=== PATIENT | female | born 1985 | race Hispanic/Latino ===

== ENCOUNTER 2018-03-26 07:43 | Emergency (ER) | payer OTHER ==
[2018-03-26] MEDS ORDERED: NA CHLORIDE 0.9% 1,000 ML ONE (08:31)
[2018-03-26] MEDS ORDERED: ONDANSETRON 4 MG/2 ML VIAL ONE (08:31)
[2018-03-26] MEDS ORDERED: FAMOTIDINE 20 MG/2 ML VIAL IV ONE (08:32)
[2018-03-26 08:57] LABS: Urine Blood TRACE (NEG); Urine Glucose NEGATIVE (NEG); Urine Protein NEGATIVE (NEG)
[2018-03-26 09:02] LABS: Absolute Lymphocytes (CBC) 0.9 K/uL (0.7-4.9); Absolute Monocytes 0.7 K/uL (0.1-1.3); Basophils % 0.1 % (0-1.3); Eosinophils % 0.2 % (0-4.4); Hematocrit 42.1 % (36.0-45.0); Lymphocytes % 6.6 % (15.3-44.8); MCH 31.5 pg (27.0-35.0); MCV 89.4 fL (80-100); MPV 8.7 fL (7.6-11.3); Monocytes % 4.8 % (3.3-12.3); RBC Red Blood Cell Count 4.72 M/uL (3.86-4.86)
[2018-03-26 09:08] LABS: Urine Bacteria <20 /HPF (<20); Urine Culture Reflex Order REFLEXED; Urine RBC <5 /HPF (NONE SEEN)
[2018-03-26 09:10] LABS: ALT/SGPT 26 U/L (12-78); AST/SGOT 18 U/L (15-37); Albumin 4.1 g/dL (3.4-5.0); Alkaline Phosphatase 83 U/L (45-117); BUN Blood Urea Nitrogen 11 mg/dL (7-18); Bicarbonate 31 mmol/L (21-32); Bilirubin Direct 0.2 mg/dL (0-0.2); Glucose Level 114 mg/dL (74-106); Lipase 126 U/L (73-393); Potassium 3.9 mmol/L (3.5-5.1); Protein, Total 8.1 g/dL (6.4-8.2); Sodium Level 139 mmol/L (136-145)
[2018-03-26] MEDS ORDERED: LIDOCAINE VISCOUS 2% SOLN 15 ML UDC ONE (09:44)
[2018-03-26] MEDS ORDERED: MAGNE/ALUM HYDROXD 30 ML UCUP ONE (09:44)
[2018-03-26 10:38] LABS: Blood Morphology Comment NOT SEEN (NOT SEEN); Platelet Estimate ADEQ
--- NOTE | 2018-03-26 10:42 | EDPHYS ---
Physician Documentation [facility] Name: Chantal Park Age: 32 yrs Sex: Female : 1985 Arrival Date: 03/26/2018 Time: 07:46 Bed 20 Private MD: Deonte Roberts ED Physician Ricco Clarke HPI: 03/26 10:45 This 32 yrs old Female presents to ER via Ambulatory with complaints of kdr Abdominal Pain. 10:45 The patient presents with abdominal pain in the epigastric area. Onset: The kdr symptoms/episode began/occurred yesterday. The symptoms do not radiate. Associated signs and symptoms: Pertinent positives: nausea, vomiting, and diarrhea, Pertinent negatives: blood in stools, chest pain, constipation, hematuria, vomiting blood. The symptoms are described as achy, burning. Modifying factors: The symptoms are alleviated by nothing, the symptoms are aggravated by vomiting. Severity of pain: At its worst the pain was mild moderate in the emergency department the pain. The patient has not experienced similar symptoms in the past. The patient has not recently seen a physician. 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 - Social history:: Smoking status: Patient/guardian denies using tobacco. - Ebola Screening: : No symptoms or risks identified at this time. ROS: 10:45 Constitutional: Negative for fever, chills, and weight loss, Eyes: Negative for injury, kdr pain, redness, and discharge, Neck: Negative for injury, pain, and swelling, Cardiovascular: Negative for chest pain, palpitations, and edema, Respiratory: Negative for shortness of breath, cough, wheezing, and pleuritic chest pain, Back: Negative for injury and pain, : Negative for injury, bleeding, discharge, and swelling, MS/Extremity: Negative for injury and deformity, Skin: Negative for injury, rash, and discoloration, Neuro: Negative for headache, weakness, numbness, tingling, and seizure activity. Psych: Negative for depression, anxiety, suicide ideation, homicidal ideation, and hallucinations, Allergy/Immunology: Negative for hives, rash, and allergies, Endocrine: Negative for neck swelling, polydipsia, polyuria, polyphagia, and marked weight changes, Hematologic/Lymphatic: Negative for swollen nodes, abnormal bleeding, and unusual bruising. 10:45 Abdomen/GI: Positive for nausea, vomiting, and diarrhea, Negative for black/tarry stool, rectal pain, rectal bleeding. Exam: 10:45 Constitutional: This is a well developed, well nourished patient who is awake, alert, kdr and in no acute distress. Head/Face: Normocephalic, atraumatic. Eyes: Pupils equal round and reactive to light, extra-ocular motions intact. Lids and lashes normal. Conjunctiva and sclera are non-icteric and not injected. Cornea within normal limits. Periorbital areas with no swelling, redness, or edema. Neck: Trachea midline, no thyromegaly or masses palpated, and no cervical lymphadenopathy. Supple, full range of motion without nuchal rigidity, or vertebral point tenderness. No Meningismus. Chest/axilla: Normal chest wall appearance and motion. Nontender with no deformity. No lesions are appreciated. Cardiovascular: Regular rate and rhythm with a normal S1 and S2. No gallops, murmurs, or rubs. Normal PMI, no JVD. No pulse deficits. Respiratory: Lungs have equal breath sounds bilaterally, clear to auscultation and percussion. No rales, rhonchi or wheezes noted. No increased work of breathing, no retractions or nasal flaring. Abdomen/GI: Soft, non-tender, with normal bowel sounds. No distension or tympany. No guarding or rebound. No evidence of tenderness throughout. Back: No spinal tenderness. No costovertebral tenderness. Full range of motion. Skin: Warm, dry with normal turgor. Normal color with no rashes, no lesions, and no evidence of cellulitis. MS/ Extremity: Pulses equal, no cyanosis. Neurovascular intact. Full, normal range of motion. Neuro: Awake and alert, GCS 15, oriented to person, place, time, and situation. Cranial nerves II-XII grossly intact. Motor strength 5/5 in all extremities. Sensory grossly intact. Cerebellar exam normal. Normal gait. Psych: Awake, alert, with orientation to person, place and time. Behavior, mood, and affect are within normal limits. Vital Signs: 07:55 BP 119 / 70; Pulse 99; Resp 18; Temp 98.8(O); Pulse Ox 99% on R/A; dh3 07:57 Weight 104.33 kg (R); Height 5 ft. 2 in. (157.48 cm) (R); Pain 9/10; aa5 08:43 BP 118 / 72; Pulse 84; Resp 18; Pulse Ox 98% on R/A; dh3 10:00 BP 116 / 69; Pulse 84; Resp 16; Pulse Ox 99% on R/A; Pain 4/10; em 11:01 BP 121 / 71; Pulse 76; Resp 18; Pulse Ox 98% on R/A; em 07:57 Body Mass Index 42.07 (104.33 kg, 157.48 cm) aa5 MDM: 10:41 Patient medically screened. kdr 10:44 Data reviewed: vital signs, nurses notes. Counseling: I had a detailed discussion with kdr the patient and/or guardian regarding: the historical points, exam findings, and any diagnostic results supporting the discharge/admit diagnosis, lab results, the need for outpatient follow up. ED course: The patient improved with the interventions given. 03/26 08:19 Order name: Basic Metabolic Panel; Complete Time: 09:25 kdr 03/26 08:19 Order name: CBC with Diff [facility] 03/26 08:19 Order name: Creatinine for Radiology; Complete Time: 09:25 [facility] 03/26 08:19 Order name: Hepatic Function; Complete Time: 09:25 [facility] 03/26 08:19 Order name: Lipase; Complete Time: 09:25 kdr 03/26 08:19 Order name: Urine Microscopic Only; Complete Time: 09:25 [facility] 03/26 08:37 Order name: Urine Dipstick--Ancillary (enter results); Complete Time: 09:25 eb 03/26 08:37 Order name: Urine --Ancillary (enter results); Complete Time: 09:25 eb 03/26 09:10 Order name: Urine Culture [facility] 03/26 09:16 Order name: Manual Differential [facility] 03/26 08:19 Order name: IV Saline Lock; Complete Time: 08:43 kdr 03/26 08:19 Order name: Labs collected and sent; Complete Time: 08:37 [facility] 03/26 08:19 Order name: Urine Dipstick-Ancillary (obtain specimen); Complete Time: 08:37 kdr Administered Medications: 08:48 Drug: Zofran 4 mg Route: IVP; Site: left forearm; aa5 09:54 Follow up: Response: No adverse reaction em 08:48 Drug: Pepcid 20 mg Route: IVP; Site: left forearm; aa5 09:54 Follow up: Response: No adverse reaction; Pain is decreased em 08:50 Drug: NS 0.9% 1000 ml Route: IV; Rate: 1 bolus; Site: left forearm; em 09:54 Follow up: IV Status: Completed infusion; IV Intake: 1000ml em 09:54 Drug: GI Cocktail without - (Maalox Suspension 30 ml, Lidocaine Liquid 2 % 15 em ml) Route: PO; 10:58 Follow up: Response: No adverse reaction; Pain is decreased em Disposition: 18 10:41 Discharged to Home. Impression: Abdominal and pelvic pain, Epigastric pain, Gastritis, unspecified. - Condition is Stable. - Discharge Instructions: Gastritis, Adult, [id number], Abdominal Pain, Adult, [id number]. - Prescriptions for Bentyl 20 mg Oral Tablet - take 1 tablet by ORAL route every 6 hours As needed; 10 tablet. Pepcid 20 mg Oral Tablet - take 1 tablet by ORAL route every 12 hours for 5 days; 10 tablet. Tramadol 50 mg Oral Tablet - take 1 tablet by ORAL route every 8 hours as needed; 12 tablet. - Medication Reconciliation Form, Thank You Letter, Work release form form. - Follow up: Deonte Roberts MD; When: 2 - 3 days; Reason: If symptoms return, Further diagnostic work-up, Recheck today's complaints, Continuance of care, Re-evaluation by your physician. - Problem is new. - Symptoms have improved. Signatures: Dispatcher [employer] EDID Ricco Clarke MD MD kdr Munoz, Edgar, LAND INSPECTOR LAND INSPECTOR em Laxmi Thurman, RN RN aa5 Corrections: (The following items were deleted from the chart) 11:02 10:41 03/26/2018 10:41 Discharged to Home. Impression: Abdominal and pelvic pain; em Epigastric pain; Gastritis, unspecified. Condition is Stable. Forms are Medication Reconciliation Form, Thank You Letter, Antibiotic Education, Prescription Opioid Use. Follow up: Deonte Roberts; When: 2 - 3 days; Reason: If symptoms return, Further diagnostic work-up, Recheck today's complaints, Continuance of care, Re-evaluation by your physician. Problem is new. Symptoms have improved. kdr
--- NOTE | 2018-03-26 10:42 | ER ---
Nurse's Notes [facility] Name: Chantal Park Age: 32 yrs Sex: Female : 1985 Arrival Date: 03/26/2018 Time: 07:46 Bed 20 Private MD: Deonte Roberts Diagnosis: Abdominal and pelvic pain;Epigastric pain;Gastritis, unspecified Presentation: 03/26 07:53 Presenting complaint: Patient states: upper abd pain that began yesterday with N/V/D. aa5 07:53 Transition of care: patient was not received from another setting of care. Onset of aa5 symptoms was March 2018. Risk Assessment: Do you want to hurt yourself or someone else? Patient reports no desire to harm self or others. Initial Sepsis Screen: Does the patient meet any 2 criteria? No. Patient's initial sepsis screen is negative. Does the patient have a suspected source of infection? No. Patient's initial sepsis screen is negative. Care prior to arrival: None. 07:53 Method Of Arrival: Ambulatory aa5 07:53 Acuity: JOVAN 3 aa5 MEDICAL INTERN: 09:23 LMP N/A - control method em Historical: - Allergies: 07:56 No Known Allergies; aa5 - PMHx: 07:56 None; aa5 - PSHx: 07:56 ; Appendectomy; Cholecystectomy; aa5 - Immunization history:: Adult Immunizations up to date. - Social history:: Smoking status: Patient/guardian denies using tobacco. - Ebola Screening: : No symptoms or risks identified at this time. Screenin:21 Abuse screen: Denies threats or abuse. Nutritional screening: No deficits noted. em Tuberculosis screening: No symptoms or risk factors identified. Fall Risk None identified. Assessment: 08:30 General: Appears in no apparent distress. uncomfortable, Behavior is calm, cooperative. em Pain: Complains of pain in abdomen Pain currently is 9 out of 10 on a pain scale. Neuro: Level of Consciousness is awake, alert. Cardiovascular: Capillary refill < 3 seconds Patient's skin is warm and dry. Respiratory: Airway is patent Respiratory effort is even, unlabored, Respiratory pattern is regular, symmetrical. GI: Abdomen is round non-distended, Bowel sounds present X 4 quads. Abd is soft X 4 quads Reports nausea, vomiting, since last night. : Urine is clear. Derm: Skin is intact, Skin is pink, warm \T\ dry. Musculoskeletal: Range of motion: intact in all extremities. 08:30 Reassessment: I agree with assessment completed by [facility] [place] . aa5 08:30 Pain: Complains of pain in right upper quadrant and left upper quadrant Quality of pain aa5 is described as sharp, Is continuous. 09:59 Reassessment: Patient appears in no apparent distress at this time. Patient and/or em family updated on plan of care and expected duration. Pain level reassessed. Patient is alert, oriented x 3, equal unlabored respirations, skin warm/dry/pink. nausea has improved, denies nausea, rates abd pain 4/10 Patient states feeling better. 10:57 Reassessment: Patient appears in no apparent distress at this time. Patient and/or em family updated on plan of care and expected duration. Pain level reassessed. Patient is alert, oriented x 3, equal unlabored respirations, skin warm/dry/pink. Vital Signs: 07:55 BP 119 / 70; Pulse 99; Resp 18; Temp 98.8(O); Pulse Ox 99% on R/A; dh3 07:57 Weight 104.33 kg (R); Height 5 ft. 2 in. (157.48 cm) (R); Pain 9/10; aa5 08:43 BP 118 / 72; Pulse 84; Resp 18; Pulse Ox 98% on R/A; dh3 10:00 BP 116 / 69; Pulse 84; Resp 16; Pulse Ox 99% on R/A; Pain 4/10; em 11:01 BP 121 / 71; Pulse 76; Resp 18; Pulse Ox 98% on R/A; em 07:57 Body Mass Index 42.07 (104.33 kg, 157.48 cm) aa5 ED Course: 07:46 Patient arrived in ED. sb2 07:47 Deonte Roberts MD is Private Physician. sb2 07:53 Arm band placed on. aa5 07:56 Triage completed. aa5 08:05 Ricco Clarke MD is Attending Physician. kdr 08:24 Rubén Trujillo LVN is Primary Nurse. em 08:28 Missed attempt(s): 20 gauge in right antecubital area. Bleeding controlled, band aid dh3 applied, catheter tip intact. 08:28 Initial lab(s) drawn, by me, sent to lab. Urine collected: clean catch specimen, clear. dh3 08:40 Inserted saline lock: 22 gauge in left forearm, using aseptic technique. aa5 09:21 Patient has correct armband on for positive identification. Bed in low position. Call em light in reach. Side rails up X 1. 09:21 No provider procedures requiring assistance completed. em 10:41 Deonte Roberts MD is Referral Physician. kdr 11:01 IV discontinued, intact, bleeding controlled, No redness/swelling at site. Pressure em dressing applied. Administered Medications: 08:48 Drug: Zofran 4 mg Route: IVP; Site: left forearm; aa5 09:54 Follow up: Response: No adverse reaction em 08:48 Drug: Pepcid 20 mg Route: IVP; Site: left forearm; aa5 09:54 Follow up: Response: No adverse reaction; Pain is decreased em 08:50 Drug: NS 0.9% 1000 ml Route: IV; Rate: 1 bolus; Site: left forearm; em 09:54 Follow up: IV Status: Completed infusion; IV Intake: 1000ml em 09:54 Drug: GI Cocktail without - (Maalox Suspension 30 ml, Lidocaine Liquid 2 % 15 em ml) Route: PO; 10:58 Follow up: Response: No adverse reaction; Pain is decreased em Intake: 09:54 IV: 1000ml; Total: 1000ml. em Outcome: 10:41 Discharge ordered by . kdr 11:01 Discharged to home ambulatory. em 11:01 Condition: good 11:01 Discharge instructions given to patient, Instructed on discharge instructions, follow up and referral plans. medication usage, Demonstrated understanding of instructions, follow-up care, medications, Prescriptions given X 3. 11:02 Patient left the ED. em Signatures: Ricco Clarke MD MD kdr Rubén Trujillo, DUPLICATING MACHINE SERVICER DUPLICATING MACHINE SERVICER em Laxmi Thurman, RN RN aa5 Monet Head 3 Christal Martinez2
== END 2018-03-26 11:02 | disposition home or self-care (01) ==
LOC: ER 07:43
DX: K29.70 Gastritis, unspecified, without bleeding (principal); R10.2 Pelvic and perineal pain
CPT/HCPCS: 36415; 80048; 80076; 81003; 81015; 81025; 83690; 85025; 87086; 87088; 96361; 96374; 96375; 99284; J2405; J7030

== ENCOUNTER 2018-12-10 08:39 | Inpatient (IN) | payer OTHER ==
[2018-12-10] MEDS ORDERED: NA CHLORIDE 0.9% 1,000 ML ONE (09:16)
[2018-12-10 09:23] LABS: Absolute Lymphocytes (CBC) 1.7 K/uL (0.7-4.9); Absolute Monocytes 1.4 K/uL (0.1-1.3); Absolute Neutrophil 20.5 K/uL (1.8-8.0); Basophils % 0.2 % (0-1.3); Eosinophils % 0.3 % (0-4.4); Hematocrit 39.3 % (36.0-45.0); Lymphocytes % 7.2 % (15.3-44.8); MPV 8.5 fL (7.6-11.3); Monocytes % 5.8 % (3.3-12.3); RBC Red Blood Cell Count 4.43 M/uL (3.86-4.86)
[2018-12-10 09:38] LABS: Urine Blood 1+ (NEG); Urine Glucose NEGATIVE (NEG); Urine Protein 1+ (NEG); Urine Specific Gravity 1.015 (1.005-1.030)
[2018-12-10 09:44] LABS: Albumin 3.8 g/dL (3.4-5.0); Bilirubin Direct 0.3 mg/dL (0-0.2); Bilirubin Total 0.9 mg/dL (0.2-1.0); Potassium 3.7 mmol/L (3.5-5.1); Protein, Total 8.3 g/dL (6.4-8.2)
[2018-12-10] MEDS ORDERED: MORPHINE 4 MG/ML SYR ONE ×2 (09:49→11:05)
[2018-12-10] MEDS ORDERED: ONDANSETRON 4 MG/2 ML VIAL ONE (09:49)
[2018-12-10 09:51] LABS: Urine Amorphous Sediment 2+ /HPF (NONE SEEN); Urine Bacteria 20-50 /HPF (<20); Urine RBC <5 /HPF (NONE SEEN)
[2018-12-10 09:52] LABS: Urine Culture Reflex Order REFLEXED
[2018-12-10 10:08] LABS: Anisocytosis 1+; Blood Morphology Comment NOTED (NOT SEEN); Platelet Estimate ADEQ; Polychromasia 1+
--- NOTE | 2018-12-10 10:36 | RAD REPORT ---
EXAM DESCRIPTION: CT - Abdomen Pelvis W Contrast - 12/10/2018 10:00 am CLINICAL HISTORY: Abdominal pain with nausea. COMPARISON: 2008 TECHNIQUE: Computed axial tomography of the abdomen pelvis was obtained. 100 cc Isovue-300 was admin istered intravenously. Oral contrast was not requested which limits evaluation of bowel. All CT scans are performed using dose optimization technique as appropriate and may include automated exposure control or mA/KV adjustment according to patient size. FINDINGS: The liver, spleen, pancreas, adrenal and kidneys appear unremarkable. There is no evidence of diverticulitis. The appendix has been removed A 5.4 centimeter heterogeneous mass is present within the left adnexa. It it contains a 3.4 centimete r low-density area. A a 3 centimeter soft tissue structure lies anteromedial to this. Stranding is pr esent within the adjacent fat. An IUD is in place. IMPRESSION: 5.4 centimeter left adnexal mass probably representing a tubo-ovarian abscess. Adjacent 3 centimeter soft tissue structure probably representing an associated inflammatory mass.
[2018-12-10] MEDS ORDERED: KETOROLAC 30 MG/ML INJ ONE (11:22)
--- NOTE | 2018-12-10 11:35 | RAD REPORT ---
EXAM DESCRIPTION: US - Transvaginal Study Probe - 12/10/2018 10:31 am CLINICAL HISTORY: Pelvic pain COMPARISON: CT study December 10 TECHNIQUE: Endovaginal and limited transabdominal sonography performed. FINDINGS: Exam is technically limited due to body habitus. IUD is in place appearing well positioned in the fundal portion of the endometrial cavity. Multiple nabothian cysts are present. Largest is 12 mm. No myometrial mass. No fluid or abnormal finding in the cul-de-sac. Uterus is 8.5 x 4.1 x 4.5 cm. Right ovary is 3.6 x 2. 4 x 2.6 cm. Left ovary is 4.8 x 4.2 x 4.5 cm. Left ovary is larger than the right and heterogeneous. An approximately 3 centimeter area of more hypoechoic tissue is seen within the overall heterogeneous and enlarged left ovary. Most commonly this is a hemorrhagic ovarian cyst. No serpiginous or tubular structure identifiable. Based on the ultrasound and review of the CT study, hemorrhagic ovarian cyst is the favored etiology over or tubo-ovarian abscess. TOA remains in the differential. IMPRESSION: Enlarged heterogeneous left ovary. As detailed in the report, hemorrhagic ovarian cyst i s favored. Uterus and right ovary show no suspicious findings.
[2018-12-10] MEDS ORDERED: CEFTRIAXONE/SWI 1gm 1 GM/10 ML SYR ONE (12:42)
--- NOTE | 2018-12-10 13:17 | ER ---
Nurse's Notes [facility] Name: Chantal Park Age: 33 yrs Sex: Female : 1985 Arrival Date: 12/10/2018 Time: 08:43 Bed 13 Private MD: Deonte Roberts Diagnosis: Tubo-ovarian Abscess Presentation: 12/10 08:50 Presenting complaint: Patient states: low pelvic pain that started last night, reports em nausea and vomiting, denies fever or dysuria. Transition of care: patient was not received from another setting of care. Onset of symptoms was December 09, 2018. Risk Assessment: Do you want to hurt yourself or someone else? Patient reports no desire to harm self or others. Initial Sepsis Screen: Does the patient meet any 2 criteria? HR > 90 bpm. No. Patient's initial sepsis screen is negative. Does the patient have a suspected source of infection? No. Patient's initial sepsis screen is negative. Care prior to arrival: None. 08:50 Method Of Arrival: Ambulatory em 08:55 Acuity: JOVAN 3 iw Triage Assessment: 08:50 Pain: Complains of pain in right inguinal area and left inguinal area Pain currently is em 10 out of 10 on a pain scale. Quality of pain is described as "someone is playing tug of war". 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 - Social history:: Smoking status: Patient/guardian denies using tobacco. - Ebola Screening: : Patient negative for fever greater than or equal to 101.5 degrees Fahrenheit, and additional compatible Ebola Virus Disease symptoms Patient denies exposure to infectious person Patient denies travel to an Ebola-affected area in the 21 days before illness onset No symptoms or risks identified at this time. Screenin:50 Abuse screen: Denies threats or abuse. Nutritional screening: No deficits noted. em Tuberculosis screening: No symptoms or risk factors identified. Fall Risk None identified. Assessment: 08:50 General: Appears in no apparent distress. uncomfortable, Behavior is calm, cooperative, em Denies fever, feeling ill, chills. Pain: Complains of pain in left inguinal area and right inguinal area Pain currently is 10 out of 10 on a pain scale. Quality of pain is described as sharp, Pain began 1 day ago. Neuro: Level of Consciousness is awake, alert, obeys commands, Oriented to person, place, time, situation. Cardiovascular: Capillary refill < 3 seconds Patient's skin is warm and dry. Respiratory: Airway is patent Respiratory effort is even, unlabored, Respiratory pattern is regular, symmetrical. GI: Abdomen is round non-distended, Abd is soft and non tender X 4 quads. Reports nausea, Patient currently denies diarrhea, vomiting. : Denies burning with urination, discharge, urinary frequency. Derm: Skin is intact, is healthy with good turgor, Skin is pink, warm \\T\\ dry. Musculoskeletal: Range of motion: intact in all extremities. 09:00 Reassessment: Patient appears in no apparent distress at this time. I agree with above iw assessment by Rubén Trujillo LVN. 09:30 Reassessment: Patient appears in no apparent distress at this time. Patient is alert, em oriented x 3, equal unlabored respirations, skin warm/dry/pink. reports pain, provider notified, new medication orders received. 10:55 Reassessment: Patient appears in no apparent distress at this time. Patient and/or em family updated on plan of care and expected duration. Pain level reassessed. Patient is alert, oriented x 3, equal unlabored respirations, skin warm/dry/pink. reports pain from US procedure, provider notified, new medication orders received. 11:30 Reassessment: Patient appears in no apparent distress at this time. Patient and/or em family updated on plan of care and expected duration. Pain level reassessed. Patient is alert, oriented x 3, equal unlabored respirations, skin warm/dry/pink. reports feeling better, rates pain 3/10. 13:15 Reassessment: Patient appears in no apparent distress at this time. Patient and/or em family updated on plan of care and expected duration. Pain level reassessed. Patient is alert, oriented x 3, equal unlabored respirations, skin warm/dry/pink. rates pain 3/10, pending room admission. 14:12 Reassessment: Patient appears in no apparent distress at this time. Patient and/or em family updated on plan of care and expected duration. Pain level reassessed. Patient is alert, oriented x 3, equal unlabored respirations, skin warm/dry/pink. pending room assignment. 15:10 Reassessment: Patient appears in no apparent distress at this time. Patient and/or em family updated on plan of care and expected duration. Pain level reassessed. Patient is alert, oriented x 3, equal unlabored respirations, skin warm/dry/pink. reports pain is coming back, rates pain 6/10, provider notified, new medication orders received. Vital Signs: 08:50 BP 116 / 69; Pulse 114; Resp 18; Temp 99.3(O); Pulse Ox 98% on R/A; Weight 117.93 kg; em Height 5 ft. 2 in. (157.48 cm); Pain 10/10; 09:44 BP 124 / 53; Pulse 101; Resp 18; Pulse Ox 99% on R/A; em 10:58 BP 104 / 59; Pulse 102; Resp 18; Pulse Ox 97% on R/A; Pain 9/10; em 11:15 Temp 99.7(O); em 13:03 BP 105 / 59; Pulse 104; Resp 18; Pulse Ox 98% ; ms 14:11 BP 111 / 57; Pulse 95; Resp 16; Pulse Ox 95% on R/A; Pain 3/10; em 15:13 BP 102 / 63; Pulse 99; Resp 16; Temp 99.2(O); Pulse Ox 95% on R/A; Pain 6/10; em 08:50 Body Mass Index 47.55 (117.93 kg, 157.48 cm) em ED Course: 08:43 Patient arrived in ED. mr 08:44 Deonte Roberts MD is Private Physician. mr 08:48 Eric Jones NP is PHCP. pm1 08:48 Thuan Montalvo MD is Attending Physician. pm1 08:50 Arm band placed on. em 08:50 Patient has correct armband on for positive identification. Placed in gown. Bed in low em position. Call light in reach. Adult w/ patient. Pulse ox on. NIBP on. 08:56 Rubén Trujillo LVN is Primary Nurse. em 09:02 Triage completed. iw 09:05 Initial lab(s) drawn, by me, sent to lab. Inserted saline lock: 20 gauge in right em antecubital area, using aseptic technique. Blood collected. 10:00 CT Abd/Pelvis - W/Contrast: IV contrast only In Process Unspecified. EDMS 10:17 Patient taken to ultrasound. via wheelchair. aa4 10:31 Ultrasound completed. Patient moved back from ultrasound. aa4 10:31 Transvaginal Study (probe) In Process Unspecified. EDMS 13:15 Jaci Johnson MD is Hospitalizing Provider. pm1 15:19 No provider procedures requiring assistance completed. Patient admitted, IV remains in em place. Administered Medications: 09:10 Drug: NS 0.9% 1000 ml Route: IV; Rate: 1000 ml; Site: right antecubital; em 11:30 Follow up: IV Status: Completed infusion; IV Intake: 1000ml em 09:43 Drug: morphine 4 mg Route: IVP; Site: right antecubital; iw 10:58 Follow up: Response: No adverse reaction; Pain is unchanged, physician notified em 09:43 Drug: Zofran 4 mg Route: IVP; Site: right antecubital; iw 10:58 Follow up: Response: No adverse reaction em 10:57 Drug: morphine 4 mg Route: IVP; Site: right antecubital; em 11:30 Follow up: Response: No adverse reaction; Pain is decreased em 12:34 Drug: Rocephin 1 grams Route: IV; Rate: calculated rate; Site: right antecubital; iw 13:05 Follow up: Response: No adverse reaction; IV Status: Completed infusion; IV Intake: 10mlem 13:13 Drug: Flagyl 500 mg Volume: 100 ml; Route: IVPB; Rate: 200 ml/hr; Infused Over: 30 em mins; Site: right antecubital; 13:45 Follow up: Response: No adverse reaction; IV Status: Completed infusion; IV Intake: em 100ml 14:08 Drug: Doxycycline 100 mg Route: IV; Rate: calculated rate; Site: right antecubital; em 15:10 Follow up: Response: No adverse reaction; IV Status: Completed infusion; IV Intake: em 100ml 15:29 Drug: fentaNYL (PF) 25 mcg Route: IVP; Site: right antecubital; iw 15:30 Follow up: Response: Medication administered at discharge. em Intake: 11:30 IV: 1000ml; Total: 1000ml. em 13:05 IV: 10ml; Total: 1010ml. em 13:45 IV: 100ml; Total: 1110ml. em 15:10 IV: 100ml; Total: 1210ml. em Outcome: 13:16 Decision to Hospitalize by Provider. pm1 15:19 Admitted to Med/surg accompanied by tech, via wheelchair, room 206, with oxygen, with em chart, Report called to BLANCA Lemon 15:19 Condition: good 15:19 Instructed on the need for admit, Demonstrated understanding of instructions. 15:33 Patient left the ED. em Signatures: Dispatcher [employer] EDMI Nat Torres, Rubén, ABALONE SHELLER ABALONE SHELLER em Tiffanie Singh RN RN iw [employer], Maria ms Frazier, Alice cho4 Eric Jones, MAGDALENE JOB MOLDER pm1 Corrections: (The following items were deleted from the chart) 15:30 15:13 BP 102 / 63; Pulse 99bpm; Resp 16bpm; Pulse Ox 95% RA; Pain 6/10; em em
--- NOTE | 2018-12-10 13:17 | EDPHYS ---
Physician Documentation [facility] Name: Chantal Park Age: 33 yrs Sex: Female : 1985 Arrival Date: 12/10/2018 Time: 08:43 Bed 13 Private MD: Deonte Roberts ED Physician Thuan Montalvo HPI: 12/10 09:30 This 33 yrs old Female presents to ER via Ambulatory with complaints of Pelvic pm1 Pain. 09:30 The patient presents with abdominal pain Suprapubic area. Onset: The symptoms/episode pm1 began/occurred last night. The symptoms do not radiate. Associated signs and symptoms: Pertinent positives: nausea, Pertinent negatives: chest pain, constipation, diarrhea, dysuria, fever, shortness of breath, vomiting. The symptoms are described as sharp. Modifying factors: The symptoms are alleviated by nothing, the symptoms are aggravated by nothing. Severity of pain: in the emergency department the pain is actually worse. The patient has not experienced similar symptoms in the past. The patient has not recently seen a physician, the patient's primary care provider is Dr. Roberts. 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 - Social history:: Smoking status: Patient/guardian denies using tobacco. - Ebola Screening: : Patient negative for fever greater than or equal to 101.5 degrees Fahrenheit, and additional compatible Ebola Virus Disease symptoms Patient denies exposure to infectious person Patient denies travel to an Ebola-affected area in the 21 days before illness onset No symptoms or risks identified at this time. ROS: 09:30 Constitutional: Negative for fever, chills, and weight loss, Eyes: Negative for injury, pm1 pain, redness, and discharge, ENT: Negative for injury, pain, and discharge, Neck: Negative for injury, pain, and swelling, Cardiovascular: Negative for chest pain, palpitations, and edema, Respiratory: Negative for shortness of breath, cough, wheezing, and pleuritic chest pain. 09:30 Back: Negative for injury and pain, : Negative for injury, bleeding, discharge, and swelling, MS/Extremity: Negative for injury and deformity, Skin: Negative for injury, rash, and discoloration, Neuro: Negative for headache, weakness, numbness, tingling, and seizure. 09:30 Abdomen/GI: Positive for abdominal pain, nausea, of the suprapubic area, Negative for vomiting, diarrhea. Exam: 09:30 Constitutional: This is a well developed, well nourished patient who is awake, alert, pm1 and in no acute distress. Head/Face: Normocephalic, atraumatic. Eyes: Pupils equal round and reactive to light, extra-ocular motions intact. Lids and lashes normal. Conjunctiva and sclera are non-icteric and not injected. Cornea within normal limits. Periorbital areas with no swelling, redness, or edema. Neck: Trachea midline, no thyromegaly or masses palpated, and no cervical lymphadenopathy. Supple, full range of motion without nuchal rigidity, or vertebral point tenderness. No Meningismus. Chest/axilla: Normal chest wall appearance and motion. Nontender with no deformity. No lesions are appreciated. Cardiovascular: Regular rate and rhythm with a normal S1 and S2. No gallops, murmurs, or rubs. Normal PMI, no JVD. No pulse deficits. Respiratory: Lungs have equal breath sounds bilaterally, clear to auscultation and percussion. No rales, rhonchi or wheezes noted. No increased work of breathing, no retractions or nasal flaring. 09:30 Back: No spinal tenderness. No costovertebral tenderness. Full range of motion. Skin: Warm, dry with normal turgor. Normal color with no rashes, no lesions, and no evidence of cellulitis. MS/ Extremity: Pulses equal, no cyanosis. Neurovascular intact. Full, normal range of motion. 09:30 Abdomen/GI: Inspection: obese Bowel sounds: normal, Palpation: soft, moderate abdominal tenderness, in the suprapubic area, mass, is not appreciated, rebound tenderness, is not appreciated. 09:30 Neuro: Orientation: is normal, Motor: is normal, moves all fours. Vital Signs: 08:50 BP 116 / 69; Pulse 114; Resp 18; Temp 99.3(O); Pulse Ox 98% on R/A; Weight 117.93 kg; em Height 5 ft. 2 in. (157.48 cm); Pain 10/10; 09:44 BP 124 / 53; Pulse 101; Resp 18; Pulse Ox 99% on R/A; em 10:58 BP 104 / 59; Pulse 102; Resp 18; Pulse Ox 97% on R/A; Pain 9/10; em 11:15 Temp 99.7(O); em 13:03 BP 105 / 59; Pulse 104; Resp 18; Pulse Ox 98% ; ms 14:11 BP 111 / 57; Pulse 95; Resp 16; Pulse Ox 95% on R/A; Pain 3/10; em 15:13 BP 102 / 63; Pulse 99; Resp 16; Temp 99.2(O); Pulse Ox 95% on R/A; Pain 6/10; em 08:50 Body Mass Index 47.55 (117.93 kg, 157.48 cm) em MDM: 08:48 Patient medically screened. pm1 09:30 Data reviewed: vital signs. Data interpreted: Pulse oximetry: on room air is 98 %. pm1 Interpretation: normal. 12:00 Counseling: I had a detailed discussion with the patient and/or guardian regarding: the pm1 historical points, exam findings, and any diagnostic results supporting the discharge/admit diagnosis, lab results, radiology results, the need for further work-up and treatment in the hospital. 13:13 Physician consultation: Kylah Amin MD was called at 13:14, regarding admission, Will pm1 consult the patient since the patient does not have any medical problems. Would like patient admitted to Dr. Johnson since admitting diagnosis is TOA. 13:18 Physician consultation: Jaci Johnson MD was called at 13:19, was contacted at 13:20, pm1 regarding admission, Will admit to her service. 12/10 08:53 Order name: Basic Metabolic Panel; Complete Time: 09:46 pm1 12/10 08:53 Order name: CBC with Diff; Complete Time: 10:51 pm1 12/10 08:53 Order name: Creatinine for Radiology; Complete Time: 09:43 pm1 12/10 08:53 Order name: Hepatic Function; Complete Time: 09:46 pm1 12/10 08:53 Order name: Lipase; Complete Time: 09:46 pm1 12/10 09:15 Order name: Urine Microscopic Only; Complete Time: 10:07 pm1 12/10 09:17 Order name: Urine Dipstick--Ancillary (enter results); Complete Time: 09:43 eb 12/10 09:17 Order name: Urine --Ancillary (enter results); Complete Time: 09:43 eb 12/10 09:33 Order name: Manual Differential; Complete Time: 10:51 EDMI 12/10 09:37 Order name: CT Abd/Pelvis - W/Contrast: IV contrast only; Complete Time: 10:51 pm1 12/10 09:43 Order name: Transvaginal Study (probe); Complete Time: 11:45 pm1 12/10 09:46 Order name: Procalcitonin; Complete Time: 10:51 pm1 12/10 09:46 Order name: Blood Culture Adult (2) pm1 12/10 09:53 Order name: Urine Culture EDMI 12/10 08:53 Order name: IV Saline Lock; Complete Time: 09:12 pm1 12/10 08:53 Order name: Labs collected and sent; Complete Time: 09:12 pm1 12/10 08:53 Order name: Urine Dipstick-Ancillary (obtain specimen); Complete Time: 09:12 pm1 12/10 08:53 Order name: Urine Test (obtain specimen); Complete Time: 09:12 pm1 12/10 13:50 Order name: CONS Physician Consult [facility] Administered Medications: 09:10 Drug: NS 0.9% 1000 ml Route: IV; Rate: 1000 ml; Site: right antecubital; em 11:30 Follow up: IV Status: Completed infusion; IV Intake: 1000ml em 09:43 Drug: morphine 4 mg Route: IVP; Site: right antecubital; iw 10:58 Follow up: Response: No adverse reaction; Pain is unchanged, physician notified em 09:43 Drug: Zofran 4 mg Route: IVP; Site: right antecubital; iw 10:58 Follow up: Response: No adverse reaction em 10:57 Drug: morphine 4 mg Route: IVP; Site: right antecubital; em 11:30 Follow up: Response: No adverse reaction; Pain is decreased em 12:34 Drug: Rocephin 1 grams Route: IV; Rate: calculated rate; Site: right antecubital; iw 13:05 Follow up: Response: No adverse reaction; IV Status: Completed infusion; IV Intake: 10mlem 13:13 Drug: Flagyl 500 mg Volume: 100 ml; Route: IVPB; Rate: 200 ml/hr; Infused Over: 30 em mins; Site: right antecubital; 13:45 Follow up: Response: No adverse reaction; IV Status: Completed infusion; IV Intake: em 100ml 14:08 Drug: Doxycycline 100 mg Route: IV; Rate: calculated rate; Site: right antecubital; em 15:10 Follow up: Response: No adverse reaction; IV Status: Completed infusion; IV Intake: em 100ml 15:29 Drug: fentaNYL (PF) 25 mcg Route: IVP; Site: right antecubital; iw 15:30 Follow up: Response: Medication administered at discharge. em Disposition: 15:37 Co-signature as Attending Physician, Thuan Montalvo MD. rn Disposition: 12/10/18 13:16 Hospitalization ordered by Jaci Johnson for Inpatient Admission. Preliminary diagnosis is Tubo-ovarian Abscess. - Bed requested for Telemetry/MedSurg (Inpatient). - Status is Inpatient Admission. em - Condition is Stable. - Problem is new. - Symptoms have improved. UTI on Admission? No Signatures: Dispatcher [employer] Lana Lopez RN RN dw Munoz, Edgar, CHARGING OPERATOR CHARGING OPERATOR em Tiffanie Singh RN RN iw Nieto, Roman, MD MD rn Marinas, Patrick, BUSINESS LOAN PROCESSOR BUSINESS LOAN PROCESSOR pm1 Corrections: (The following items were deleted from the chart) 14:50 13:16 Hospitalization Ordered by Jaci Johnson MD for Inpatient Admission. Preliminary dw diagnosis is Tubo-ovarian Abscess. Bed requested for Telemetry/MedSurg (Inpatient). Status is Inpatient Admission. Condition is Stable. Problem is new. Symptoms have improved. UTI on Admission? No. pm1 15:33 14:50 12/10/2018 13:16 Hospitalization Ordered by Jaci Johnson MD for Inpatient em Admission. Preliminary diagnosis is Tubo-ovarian Abscess. Bed requested for Telemetry/MedSurg (Inpatient). Status is Inpatient Admission. Condition is Stable. Problem is new. Symptoms have improved. UTI on Admission? No. dw
[2018-12-10] MEDS ORDERED: METRONIDAZOLE 500mg IVPB 500 MG/100 ML BAG IV ONE (13:18)
[2018-12-10] MEDS ORDERED: DOXYCYCLINE 100 MG in NA CHLORIDE 0.9% 100 ML IVPB ONE (13:30)
[2018-12-10] MEDS ORDERED: FENTANYL CITR 100 MCG/2 ML ONE (15:20)
[2018-12-10] MEDS ORDERED: ONDANSETRON 4 MG/2 ML VIAL IV PRN (15:27)
[2018-12-10] MEDS ORDERED: ACETAMINOPHEN 500 MG TAB PO PRN (15:27)
[2018-12-10 16:07] VITALS: BMI 47.5
--- NOTE | 2018-12-10 16:22 | P.CNS ---
Date of Consult: 12/10/18 Reason for Consult: Medical Mgmt Requesting Physician: Guillermo Johnson Primary Care Provider: Dr nugent Chief Complaint: TOA History of Present Illness: This is a 33-year-old female with no significant past medical history who presented to the ED complaining of left lower quadrant and right lower quadrant pain. 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 In the ER patient was found to have to be ovarian abscess and thus OBGYN was consulted to admit the patient to the hospital. Medicine team was consulted for medical management. Patient denies having any fever chills nausea vomiting or any other associated symptoms. Patient denies smoking or any alcohol use as well. Allergies No Known Allergies Allergy (Unverified 09/30/17 16:09) Home Medications: NK [No Home Meds] 12/10/18 - Past Medical/Surgical History Past Medical History: Patient denies medical history Past Surgical History: Patient denies surgical history - Social History Smoking Status: Never smoker Counseled patient to stop smoking for: more than 10 minutes Smoking therapy provided: Yes Patient receptive to therapy: Yes Alcohol use: No CD- Drugs: No Caffeine use: No Place of Residence: Home Review of Systems 10-point ROS is otherwise unremarkable Physical Examination General: Alert, In no apparent distress, Obese HEENT: Atraumatic, PERRLA, Mucous membr. moist/pink, EOMI, Sclerae nonicteric Neck: Supple, 2+ carotid pulse no bruit, No LAD, Without JVD or thyroid abnormality Respiratory: Clear to auscultation bilaterally, Normal air movement Cardiovascular: Regular rate/rhythm, Normal S1 S2 Gastrointestinal: Normal bowel sounds, Tenderness (LLQ and RLQ) Musculoskeletal: No tenderness Integumentary: No rashes Neurological: Normal gait, Normal speech, Normal tone, Normal affect Lymphatics: No axilla or inguinal lymphadenopathy Laboratory Data (last 24 hrs) 12/10/18 09:07: Creatinine 0.72 12/10/18 09:07: WBC 23.7 H*, Hgb 13.2, Hct 39.3, Plt Count 338 12/10/18 09:07: Sodium 138, Potassium 3.7, BUN 7, Creatinine 0.75, Glucose 135 H , Total Bilirubin 0.9, AST 6 L, ALT 26, Alkaline Phosphatase 80, Lipase 79 - Problems (1) TOA (tubo-ovarian abscess) Current Visit: Yes Status: Acute Plan: Patient with tubo-ovarian abscess on abdominal CT -OBGYN is primary on the case -currently patient NPO and started on IV antibiotics(Rocephin, doxycycline and Flagyl) -urine culture collected and blood culture collected as well -patient may most likely need surgical procedure however will defer the decision to OBGYN (2) Morbid obesity Current Visit: Yes Status: Acute Plan: Morbid obesity patient was educated extensively on diet and exercise. BMI of 47.6 high risk for chronic heart disease Critical Care: No
[2018-12-10] MEDS: NA CHLORIDE 0.9% 1,000 ML IV SCH (16:40)
[2018-12-10] MEDS ORDERED: METRONIDAZOLE 500mg IVPB 500 MG/100 ML BAG IV SCH (17:00)
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
[2018-12-10] MEDS: CEFTRIAXONE/SWI 1gm 1 GM/10 ML SYR IVP SCH (20:40)
[2018-12-10] MEDS: DOXYCYCLINE 100 MG in NA CHLORIDE 0.9% 100 ML IVPB SCH (20:40)
[2018-12-10] MEDS: MORPHINE 4 MG/ML SYR IV PRN (20:40)
[2018-12-11] MEDS ORDERED: CEFOXITIN/SWI 1gm 0 GM/0 ML SYR ONE (00:12)
[2018-12-11] MEDS ORDERED: CEFOXITIN/SWI 1gm 1 GM/10 ML SYR ONE (00:50)
[2018-12-11] MEDS: NA CHLORIDE 0.9% 1,000 ML IV SCH ×3 (00:52→20:23)
[2018-12-11] MEDS: MORPHINE 4 MG/ML SYR IV PRN ×3 (05:49→20:23)
[2018-12-11] MEDS: CEFOXITIN 2 GM in NA CHLORIDE 0.9% 100 ML IVPB SCH ×3 (06:00)
[2018-12-11 06:01] LABS: Absolute Lymphocytes (CBC) 1.5 K/uL (0.7-4.9); Absolute Monocytes 1.2 K/uL (0.1-1.3); Absolute Neutrophil 14.6 K/uL (1.8-8.0); Basophils % 0.2 % (0-1.3); Eosinophils % 0.6 % (0-4.4); Lymphocytes % 8.5 % (15.3-44.8); MPV 8.2 fL (7.6-11.3); RBC Red Blood Cell Count 3.58 M/uL (3.86-4.86)
[2018-12-11 06:25] LABS: BUN Blood Urea Nitrogen 8 mg/dL (7-18); Bicarbonate 24 mmol/L (21-32); Glucose Level 129 mg/dL (74-106); Potassium 3.8 mmol/L (3.5-5.1); Sodium Level 138 mmol/L (136-145)
[2018-12-11] MEDS: CEFOXITIN/SWI 2gm 2 GM/20 ML SYR IV SCH ×4 (08:58→23:36)
[2018-12-11] MEDS: CEFTRIAXONE/SWI 1gm 1 GM/10 ML SYR IVP SCH ×2 (08:58→20:23)
[2018-12-11] MEDS: DOXYCYCLINE 100 MG in NA CHLORIDE 0.9% 100 ML IVPB SCH ×2 (10:38→20:22)
--- NOTE | 2018-12-11 12:16 | P.PN ---
Subjective Date of Service: 12/11/18 Primary Care Provider: Dr nugent Chief Complaint: TOA Subjective: Tolerating diet, Ambulating, Improving, Doing well, Other (denies Fever, Chills or abd pain. No vaginal Bleeding or discharge noted. States she does have a new partner) Review of Systems 10-point ROS is otherwise unremarkable Physical Examination - Vital Signs Temperature: 97.8 F Blood Pressure: 98/56 Pulse: 95 Respirations: 17 Pulse Ox (%): 98 - Physical Exam General: Alert, In no apparent distress HEENT: Atraumatic, PERRLA, EOMI Neck: Supple, JVD not distended Respiratory: Clear to auscultation bilaterally, Normal air movement Cardiovascular: Regular rate/rhythm, Normal S1 S2 Gastrointestinal: Normal bowel sounds, Tenderness (LLQ but improved from yesterday) Musculoskeletal: No tenderness Integumentary: No rashes Neurological: Normal speech, Normal tone, Normal affect Lymphatics: No axilla or inguinal lymphadenopathy - Studies Medications List Reviewed: Yes Assessment And Plan - Current Problems (Diagnosis) (1) TOA (tubo-ovarian abscess) Current Visit: Yes Status: Acute Plan: Patient with tubo-ovarian abscess on abdominal CT -OBGYN is primary on the case -on IV antibiotics(Rocephin, doxycycline and Flagyl) -urine culture collected and blood culture collected as well. Pending results (2) Morbid obesity Current Visit: Yes Status: Acute Plan: Morbid obesity patient was educated extensively on diet and exercise. BMI of 47.6 high risk for chronic heart disease Discharge Plan: Home Plan to discharge in: Greater than 2 days - Code Status/Comfort Care Code Status Assessed: Yes Critical Care: No
--- NOTE | 2018-12-11 22:43 | P.PN ---
Subjective Date of Service: 12/11/18 Primary Care Provider: Dr nugent Chief Complaint: TOA Subjective: Tolerating diet, Ambulating, Improving Patient is a 33 y/o who was admitted for treatment of TOA vs ruptured hemorrhagic cyst. She has been improving. She is eating well and voiding without difficulty. Denies pelvic pain. Review of Systems 10-point ROS is otherwise unremarkable Physical Examination - Vital Signs Temperature: 98.4 F Blood Pressure: 101/59 Pulse: 100 Respirations: 17 Pulse Ox (%): 98 - Physical Exam General: Alert, In no apparent distress, Oriented x3 HEENT: Atraumatic Neck: Supple Respiratory: Normal air movement Cardiovascular: No edema, Normal pulses Gastrointestinal: Soft and benign Musculoskeletal: No clubbing, No swelling Integumentary: No rashes - Studies Microbiology 12/10/18 11:00 Blood - Blood Aerobic Blood Culture - Preliminary 12/10/18 11:00 Blood - Blood Anaerobic Blood Culture - Preliminary No growth in 24 hours. No growth in 24 hours. 12/10/18 09:46 Blood - Blood Aerobic Blood Culture - Preliminary 12/10/18 09:46 Blood - Blood Anaerobic Blood Culture - Preliminary No growth in 24 hours. No growth in 24 hours. 12/10/18 09:13 Clean Catch Urine [place] Count - Preliminary 12/10/18 09:13 Clean Catch Urine - Preliminary BETWEEN 10,000 & 100,000 CFU/ML MIXED CECI. Laboratory Tests 12/10/18 12/11/18 09:07 05:36 WBC 23.7 H* 17.4 H D Hgb 13.2 11.1 L Hct 39.3 32.0 L D Plt Count 338 273 Medications List Reviewed: Yes Assessment And Plan - Plan Patient is a 33-year-old 012 LMP 11/28/2018 with a Mirena IUD in place who presented with acute abdominal pelvic pain. Patient potentially has a tubo- ovarian abscess versus a left adnexal hemorrhagic cyst. Continue current antibiotic for 48 hours. WBCs improving - will repeat tomorrow. Possible discharge home tomorrow.
[2018-12-12 00:19] VITALS: O2SAT 96
[2018-12-12] MEDS: CEFOXITIN/SWI 2gm 2 GM/20 ML SYR IV SCH ×3 (05:07→17:18)
[2018-12-12] MEDS: NA CHLORIDE 0.9% 1,000 ML IV SCH ×2 (05:07→08:57)
[2018-12-12] MEDS: MORPHINE 4 MG/ML SYR IV PRN ×2 (06:14→14:18)
[2018-12-12 06:34] LABS: Absolute Lymphocytes (CBC) 1.4 K/uL (0.7-4.9); Absolute Monocytes 0.9 K/uL (0.1-1.3); Absolute Neutrophil 12.3 K/uL (1.8-8.0); Basophils % 0.3 % (0-1.3); Eosinophils % 1.4 % (0-4.4); Hematocrit 33.4 % (36.0-45.0); Lymphocytes % 9.6 % (15.3-44.8); MPV 8.4 fL (7.6-11.3); Monocytes % 5.9 % (3.3-12.3); RBC Red Blood Cell Count 3.75 M/uL (3.86-4.86)
[2018-12-12] MEDS: CEFTRIAXONE/SWI 1gm 1 GM/10 ML SYR IVP SCH (08:56)
[2018-12-12] MEDS: DOXYCYCLINE 100 MG in NA CHLORIDE 0.9% 100 ML IVPB SCH (08:56)
--- NOTE | 2018-12-12 11:03 | P.PN ---
Subjective Date of Service: 12/12/18 Primary Care Provider: Dr nugent Chief Complaint: TOA Subjective: Tolerating diet, Ambulating, Improving, Working w/ PT, Doing well Review of Systems 10-point ROS is otherwise unremarkable Physical Examination - Vital Signs Temperature: 97.6 F Blood Pressure: 92/52 Pulse: 82 Respirations: 16 Pulse Ox (%): 100 - Physical Exam General: Alert, In no apparent distress HEENT: Atraumatic, PERRLA, EOMI Neck: Supple, JVD not distended Respiratory: Clear to auscultation bilaterally, Normal air movement Cardiovascular: Regular rate/rhythm, Normal S1 S2 Gastrointestinal: Normal bowel sounds, No tenderness Musculoskeletal: No tenderness Integumentary: No rashes Neurological: Normal speech, Normal tone, Normal affect Lymphatics: No axilla or inguinal lymphadenopathy - Studies Microbiology Data (last 24 hrs): 12/10/18 09:13 Clean Catch Urine [place] Count - Final >100,000 CFU/ML. 12/10/18 09:13 Clean Catch Urine - Final MIXED CECI. Medications List Reviewed: Yes Assessment And Plan - Current Problems (Diagnosis) (1) TOA (tubo-ovarian abscess) Current Visit: Yes Status: Acute Plan: Patient with tubo-ovarian abscess on abdominal CT -OBGYN is primary on the case -on IV antibiotics(Rocephin, doxycycline and Flagyl) -urine culture collected and blood culture collected as well. Negative thus far (2) Morbid obesity Current Visit: Yes Status: Acute Plan: Morbid obesity patient was educated extensively on diet and exercise. BMI of 47.6 high risk for chronic heart disease Discharge Plan: Home Plan to discharge in: 48 Hours - Code Status/Comfort Care Code Status Assessed: Yes Critical Care: No
[2018-12-12 13:05] VITALS: BP 129/61; TEMP 97.9
[2018-12-14 06:46] LABS: C.trachomatis RNA,TMA Not Detected (Not Detected)
== END 2018-12-12 16:20 | disposition home or self-care (01) | DRG 758 ==
LOC: ER 08:39 → ERHOLD 13:41 → 2ND 15:20
PROVIDERS: ADMIT Student in an Organized Health Care Education/Training Program; ATTEND Student in an Organized Health Care Education/Training Program
DX: N70.03 Acute salpingitis and oophoritis (principal); Z68.42 Body mass index [BMI] 45.0-49.9, adult; E66.01 Morbid (severe) obesity due to excess calories
CPT/HCPCS: 36415; 74177; 76830; 80048; 80076; 81003; 81015; 81025; 83690; 84145; 85025; 87040; 87086; 87088; 87490; 87590; 96361; 96365; 96367; 96375; 99285; J0694; J0696; J2405; J3010; J7030; Q9967

== ENCOUNTER 2018-12-16 17:09 | Emergency (ER) | payer OTHER ==
[2018-12-16 19:11] LABS: Absolute Lymphocytes (CBC) 1.7 K/uL (0.7-4.9); Absolute Monocytes 1.1 K/uL (0.1-1.3); Absolute Neutrophil 15.2 K/uL (1.8-8.0); Basophils % 0.3 % (0-1.3); Eosinophils % 0.5 % (0-4.4); Hematocrit 35.8 % (36.0-45.0); Lymphocytes % 9.5 % (15.3-44.8); MPV 7.9 fL (7.6-11.3); Monocytes % 6.2 % (3.3-12.3); RBC Red Blood Cell Count 4.05 M/uL (3.86-4.86)
[2018-12-16] MEDS ORDERED: NA CHLORIDE 0.9% 1,000 ML ONE (19:17)
[2018-12-16 19:28] LABS: ALT/SGPT 22 U/L (12-78); AST/SGOT 10 U/L (15-37); Albumin 3.5 g/dL (3.4-5.0); Alkaline Phosphatase 83 U/L (45-117); BUN Blood Urea Nitrogen 5 mg/dL (7-18); Bicarbonate 29 mmol/L (21-32); Bilirubin Direct 0.1 mg/dL (0-0.2); Bilirubin Total 0.3 mg/dL (0.2-1.0); Glucose Level 158 mg/dL (74-106); Lipase 125 U/L (73-393); Potassium 3.6 mmol/L (3.5-5.1); Protein, Total 8.2 g/dL (6.4-8.2); Sodium Level 138 mmol/L (136-145)
[2018-12-16] MEDS ORDERED: MORPHINE 4 MG/ML SYR ONE (19:37)
[2018-12-16] MEDS ORDERED: ONDANSETRON 4 MG/2 ML VIAL ONE (19:38)
[2018-12-16 19:49] LABS: Urine Blood TRACE (NEG); Urine Glucose NEGATIVE (NEG); Urine Protein NEGATIVE (NEG); Urine Specific Gravity 1.015 (1.005-1.030)
--- NOTE | 2018-12-16 20:10 | RAD REPORT ---
EXAM DESCRIPTION: US - Transvaginal Study Probe - 12/16/2018 8:01 pm CLINICAL HISTORY: left adnexal pain with history tubo-ovarian abscess Pelvic pain. COMPARISON: Transvaginal Study Probe dated 12/10/2018 FINDINGS: The uterus is normal in size, shape and echotexture. The uterus measures 8.3 x 4.8 x 4.7 c m. The fundal endometrium is seen to be thin and contain an IUD. The left ovary is enlarged in size measuring 6.9 x 6.2 x 5.7 cm. 4.5 x 4.1 x 3.6 cm lesion is seen wi thin the left ovary suspicious for hemorrhagic cyst or endometrioma. Doppler blood flow was noted to the left ovary. The right ovary was obscured by bowel gas. No pelvic ascites. IMPRESSION: Enlarged left ovary containing circumscribed hypoechoic lesion, suspicious for a hemorrh agic cyst or endometrioma. The size of the ovary and the lesion appear mildly increased since compara tive study.Ovarian torsion is not identified as Doppler blood flow is seen to the left ovary.
[2018-12-16 20:12] LABS: Urine Bacteria <20 /HPF (<20); Urine Culture Reflex Order NOT NEEDED; Urine Mucus 1+ /HPF (NONE SEEN)
[2018-12-16] MEDS ORDERED: CEFTRIAXONE/SWI 1gm 2 GM/20 ML SYR ONE (20:52)
[2018-12-16] MEDS ORDERED: METRONIDAZOLE 500mg IVPB 500 MG/100 ML BAG IV ONE (21:45)
--- NOTE | 2018-12-16 22:10 | EDPHYS ---
Physician Documentation [facility] Name: Chantal Park Age: 33 yrs Sex: Female : 1985 Arrival Date: 12/16/2018 Time: 17:10 Bed 14 Private MD: Deonte Roberts ED Physician Thuan Montalvo HPI: 12/16 18:20 This 33 yrs old Female presents to ER via Ambulatory with complaints of Pelvic cp Pain. 18:40 The patient presents with pelvic pain, that is located in/on the left side. Onset: The cp symptoms/episode began/occurred last week, and became worse today. 18:40 The patient has been recently seen at the [facility] Emergency cp Department, last week, for similar complaints admitted for ovarian cyst vs abscess by DR Johnson. No surgery performed and patient currently taking Doxycycline antibiotic. 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 - Social history:: Smoking status: Patient/guardian denies using tobacco. - Ebola Screening: : No symptoms or risks identified at this time. ROS: 18:25 Constitutional: Negative for body aches, chills, fever, poor PO intake. cp 18:25 Eyes: Negative for injury, pain, redness, and discharge. cp 18:25 ENT: Negative for drainage from ear(s), ear pain, sore throat, difficulty swallowing, difficulty handling secretions. 18:25 Cardiovascular: Negative for chest pain, palpitations. 18:25 Respiratory: Negative for cough, shortness of breath, wheezing. 18:25 Abdomen/GI: Positive for abdominal pain, Negative for vomiting, diarrhea, constipation, black/tarry stool, rectal bleeding. 18:25 : Positive for pelvic pain, Negative for urinary symptoms. 18:25 Neuro: Negative for headache, weakness. 18:25 All other systems are negative. Exam: 18:30 Constitutional: The patient appears in no acute distress, alert, awake, non-toxic, well cp developed, well nourished, obese. 18:30 Head/Face: Normocephalic, atraumatic. cp 18:30 Eyes: Pupils equal round and reactive to light, extra-ocular motions intact. Lids and lashes normal. Conjunctiva and sclera are non-icteric and not injected. Cornea within normal limits. Periorbital areas with no swelling, redness, or edema. ENT: Nares patent. No nasal discharge, no septal abnormalities noted. Tympanic membranes are normal and external auditory canals are clear. Oropharynx with no redness, swelling, or masses, exudates, or evidence of obstruction, uvula midline. Mucous membranes moist. Chest/axilla: Normal chest wall appearance and motion. Nontender with no deformity. No lesions are appreciated. 18:30 Cardiovascular: Rate: tachycardic, Rhythm: regular. 18:30 Respiratory: the patient does not display signs of respiratory distress, Respirations: normal, no use of accessory muscles, no retractions, no splinting, no tachypnea, labored breathing, is not present, Breath sounds: are clear throughout, no decreased breath sounds, no stridor, no wheezing. 18:30 Abdomen/GI: Inspection: obese Bowel sounds: active, all quadrants, Palpation: soft, in all quadrants, severe abdominal tenderness, in the left adnexal area, rebound tenderness, is not appreciated, voluntary guarding. 18:30 Back: pain, is absent, ROM is normal. 18:30 Skin: cellulitis, is not appreciated, no rash present. Vital Signs: 17:25 BP 140 / 90; Pulse 109; Resp 18 S; Temp 99.8(O); Pulse Ox 100% ; Weight 117.93 kg (R); aa5 Height 5 ft. 2 in. (157.48 cm) (R); Pain 9/10; 18:14 BP 120 / 70 LA; Pulse 100; Resp 19 S; Pulse Ox 100% on R/A; rv 20:59 Pulse 75; Resp 16 S; Pulse Ox 99% on R/A; rv 22:00 BP 110 / 70; Pulse 70; Resp 17; Pulse Ox 99% ; rr5 23:00 BP 105 / 65; Pulse 79; Resp 17; Pulse Ox 98% ; rr5 23:45 BP 108 / 72; Pulse 72; Resp 19; Pulse Ox 100% ; rr5 17:25 Body Mass Index 47.55 (117.93 kg, 157.48 cm) aa5 MDM: 18:08 Patient medically screened. cp 21:01 Data reviewed: vital signs, nurses notes, lab test result(s), radiologic studies, cp ultrasound. 21:01 Response to treatment: the patient's symptoms have markedly improved after treatment. cp 21:02 Physician consultation: Jaci Johnson MD was called at 21:03, was contacted at 21:03, regarding patient's condition, and will see patient in ED, shortly. 22:06 Physician consultation: Jaci Johnson MD in the emergency department to see patient at cp 21:30, IUD removed after evaluation. Dr Johnson requests patient patient be discharged to home with addition of flagyl antibiotic for 2 weeks and pain meds. Will see patient in clinic on 12-20-2018. 04 18:18 Order name: Basic Metabolic Panel; Complete Time: 20:20 12/16 21:01 Interpretation: Normal except: GLUC 158; BUN 5; CA 8.9. cp 12/16 18:18 Order name: CBC with Diff; Complete Time: 20:20 cp 12/16 20:20 Interpretation: Normal except: WBC 18.2; HGB 11.9; HCT 35.8; PLT 374; LUCAS% 83.5; LYM% cp 9.5; NEUT A 15.2. 12/16 18:18 Order name: Creatinine for Radiology; Complete Time: 20:20 cp 12/16 18:18 Order name: Hepatic Function; Complete Time: 20:20 cp 12/16 18:18 Order name: Lipase; Complete Time: 20:20 cp 12/16 18:29 Order name: Blood Culture Adult (2) cp 04 18:29 Order name: Lactate; Complete Time: 20:20 cp 12/16 18:29 Order name: Procalcitonin; Complete Time: 20:20 cp 12/16 18:30 Order name: US Transvaginal Study (Probe); Complete Time: 20:20 cp 12/16 19:46 Order name: Urine Dipstick--Ancillary (enter results); Complete Time: 20:20 cm6 12/16 19:46 Order name: Urine --Ancillary (enter results); Complete Time: 20:20 cm6 12/16 19:47 Order name: Urine Microscopic Only; Complete Time: 20:20 cm6 12/16 22:01 Order name: Wound Culture EDMS 12/16 18:18 Order name: IV Saline Lock; Complete Time: 19:18 cp 12/16 18:18 Order name: Labs collected and sent; Complete Time: 19:18 cp 12/16 18:18 Order name: Urine Dipstick-Ancillary (obtain specimen); Complete Time: 19:18 cp 12/16 18:18 Order name: Urine Test (obtain specimen); Complete Time: 19:18 cp Administered Medications: 19:00 Drug: NS 0.9% 1000 ml Route: IV; Rate: 1 bolus; Site: right antecubital; rv 20:59 Follow up: IV Status: Completed infusion rv 19:30 Drug: morphine 4 mg Route: IVP; Site: right antecubital; rv 19:40 Follow up: Response: Pain is decreased rv 19:30 Drug: Zofran 4 mg Route: IVP; Site: right antecubital; rv 19:39 Follow up: Response: No adverse reaction rv 20:45 Drug: Rocephin - (cefTRIAXone) 2 grams Route: IVPB; Infused Over: 30 mins; Site: right rv antecubital; 20:58 Follow up: IV Status: Completed infusion rv 21:55 Drug: metroNIDAZOLE 500 mg Volume: 100 ml; Route: IVPB; Infused Over: 30 mins; Site: rv right antecubital; 22:49 Follow up: Response: No adverse reaction; IV Status: Completed infusion; IV Intake: rr5 100ml 22:55 Drug: Hydrocodone-Acetaminophen (7.5 mg-325 mg) 1 tabs Route: PO; rr5 23:45 Follow up: Response: No adverse reaction rr5 22:56 Drug: TORadol 30 mg Route: IVP; Site: right antecubital; rr5 23:45 Follow up: Response: No adverse reaction rr5 Disposition: 12/16/18 22:10 Discharged to Home. Impression: Abdominal and pelvic pain, Unspecified ovarian cysts - Left. - Condition is Stable. - Discharge Instructions: Ovarian Cyst, Pelvic Pain, Female. - Prescriptions for Ibuprofen 800 mg Oral Tablet - take 1 tablet by ORAL route every 8 hours As needed take with food; 30 tablet. Tylenol- Codeine #3 300-30 mg Oral Tablet - take 2 tablets by ORAL route every 6 hours As needed; 20 tablet. Metronidazole 500 mg Oral Tablet - take 1 tablet by ORAL route every 8 hours for 14 days; 42 tablet. - Medication Reconciliation Form, Thank You Letter, Antibiotic Education, Prescription Opioid Use form. - Follow up: Jaci Johnson MD; When: 12-21-2018; Reason: Recheck today's complaints. - Problem is an ongoing problem. - Symptoms have improved. Addendum: 12/20/2018 07:01 Co-signature as Attending Physician, Thuan Montalvo MD. r n Signatures: Dispatcher [employer] [facility] Thuan Montalvo MD MD rn Laxmi Thurman RN RN aa5 Harrison Agudelo PA PA cp Jef Guerrero, RN RN Ryder Silva RN RN rr5 Corrections: (The following items were deleted from the chart) 12/16 21:02 20:20 Normal except: GLUC 158; BUN 5. cp cp 22:01 21:42 Miscellaneous Lab Test+R.LAB.BRZ ordered. [facility] 23:49 22:10 12/16/2018 22:10 Discharged to Home. Impression: Abdominal and pelvic pain; rr5 Unspecified ovarian cysts - Left. Condition is Stable. Forms are Medication Reconciliation Form, Thank You Letter, Antibiotic Education, Prescription Opioid Use. Follow up: Jaci Johnson; When: 12-21-2018; Reason: Recheck today's complaints. Problem is an ongoing problem. Symptoms have improved. cp
--- NOTE | 2018-12-16 22:10 | ER ---
Nurse's Notes [facility] Name: Chantal Park Age: 33 yrs Sex: Female : 1985 Arrival Date: 12/16/2018 Time: 17:10 Bed 14 Private MD: Deonte Roberts Diagnosis: Abdominal and pelvic pain;Unspecified ovarian cysts-Left Presentation: 12/16 17:23 Presenting complaint: Patient states: "I was seen here Prasanth and admitted for an aa5 ovarian cyst abscess but I am still having the pain". pt c/o pain to left side of pelvis. Transition of care: patient was not received from another setting of care. Onset of symptoms was 2018. Risk Assessment: Do you want to hurt yourself or someone else? Patient reports no desire to harm self or others. Care prior to arrival: None. 17:23 Method Of Arrival: Ambulatory aa5 17:23 Acuity: JOVAN 3 aa5 19:20 Initial Sepsis Screen: Does the patient meet any 2 criteria? No. Patient's initial rv sepsis screen is negative. Does the patient have a suspected source of infection? No. Patient's initial sepsis screen is negative. 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 - Social history:: Smoking status: Patient/guardian denies using tobacco. - Ebola Screening: : No symptoms or risks identified at this time. Screenin:20 Abuse screen: Denies threats or abuse. Denies injuries from another. Nutritional rv screening: No deficits noted. Tuberculosis screening: No symptoms or risk factors identified. Fall Risk None identified. Assessment: 19:19 General: Appears in no apparent distress. comfortable, Behavior is calm, cooperative. rv Pain: Complains of pain in pelvis. Neuro: Level of Consciousness is awake, alert, obeys commands, Oriented to person, place, time, situation. Cardiovascular: Capillary refill < 3 seconds. Respiratory: Airway is patent. GI: No signs and/or symptoms were reported involving the gastrointestinal system. : No signs and/or symptoms were reported regarding the genitourinary system. EENT: No signs and/or symptoms were reported regarding the EENT system. Derm: Skin is intact. Musculoskeletal: No signs and/or symptoms reported regarding the musculoskeletal system. 20:59 Reassessment: Patient appears in no apparent distress at this time. Patient and/or rv family updated on plan of care and expected duration. Pain level reassessed. Patient is alert, oriented x 3, equal unlabored respirations, skin warm/dry/pink. 22:00 Reassessment: Patient appears in no apparent distress at this time. Patient is alert, rr5 oriented x 3, equal unlabored respirations, skin warm/dry/pink. ongoing flagyl infusion for discharge after. 23:00 Reassessment: Patient appears in no apparent distress at this time. Patient is alert, rr5 oriented x 3, equal unlabored respirations, skin warm/dry/pink. asleep comfortably on bed. 23:46 Reassessment: No changes from previously documented assessment. Patient is alert, rr5 oriented x 3, equal unlabored respirations, skin warm/dry/pink. discharge instruction given and explained without complaints made. Patient states feeling better. Patient states symptoms have improved. Vital Signs: 17:25 BP 140 / 90; Pulse 109; Resp 18 S; Temp 99.8(O); Pulse Ox 100% ; Weight 117.93 kg (R); aa5 Height 5 ft. 2 in. (157.48 cm) (R); Pain 9/10; 18:14 BP 120 / 70 LA; Pulse 100; Resp 19 S; Pulse Ox 100% on R/A; rv 20:59 Pulse 75; Resp 16 S; Pulse Ox 99% on R/A; rv 22:00 BP 110 / 70; Pulse 70; Resp 17; Pulse Ox 99% ; rr5 23:00 BP 105 / 65; Pulse 79; Resp 17; Pulse Ox 98% ; rr5 23:45 BP 108 / 72; Pulse 72; Resp 19; Pulse Ox 100% ; rr5 17:25 Body Mass Index 47.55 (117.93 kg, 157.48 cm) aa5 ED Course: 17:10 Patient arrived in ED. mr 17:10 Deonte Roberts MD is Private Physician. mr 17:23 Arm band placed on. aa5 17:24 Triage completed. aa5 17:58 Jef Guerrero, BLANCA is Primary Nurse. rv 18:08 Harrison Agudelo PA is PHCP. cp 18:08 Thuan Montalvo MD is Attending Physician. cp 19:00 Inserted saline lock: 20 gauge in right antecubital area, using aseptic technique. rv Blood collected. 19:00 First set of blood cultures drawn by me. rv 19:15 Second set of blood cultures drawn by me. rv 19:20 Patient has correct armband on for positive identification. Bed in low position. Call rv light in reach. Side rails up X 1. Pulse ox on. NIBP on. 20:01 US Transvaginal Study (Probe) In Process Unspecified. EDMS 21:40 Assist provider with pelvic exam: Set up pelvic tray. Performed by Jaci Johnson MD ed1 Specimens sent to lab. Patient tolerated well. 22:09 Jaci Johnson MD is Referral Physician. cp 23:45 IV discontinued, intact, bleeding controlled, No redness/swelling at site. Pressure rr5 dressing applied. Administered Medications: 19:00 Drug: NS 0.9% 1000 ml Route: IV; Rate: 1 bolus; Site: right antecubital; rv 20:59 Follow up: IV Status: Completed infusion rv 19:30 Drug: morphine 4 mg Route: IVP; Site: right antecubital; rv 19:40 Follow up: Response: Pain is decreased rv 19:30 Drug: Zofran 4 mg Route: IVP; Site: right antecubital; rv 19:39 Follow up: Response: No adverse reaction rv 20:45 Drug: Rocephin - (cefTRIAXone) 2 grams Route: IVPB; Infused Over: 30 mins; Site: right rv antecubital; 20:58 Follow up: IV Status: Completed infusion rv 21:55 Drug: metroNIDAZOLE 500 mg Volume: 100 ml; Route: IVPB; Infused Over: 30 mins; Site: rv right antecubital; 22:49 Follow up: Response: No adverse reaction; IV Status: Completed infusion; IV Intake: rr5 100ml 22:55 Drug: Hydrocodone-Acetaminophen (7.5 mg-325 mg) 1 tabs Route: PO; rr5 23:45 Follow up: Response: No adverse reaction rr5 22:56 Drug: TORadol 30 mg Route: IVP; Site: right antecubital; rr5 23:45 Follow up: Response: No adverse reaction rr5 Intake: 22:49 IV: 100ml; Total: 100ml. rr5 Outcome: 22:10 Discharge ordered by . jenni 23:45 Discharged to home ambulatory, with family. rr5 23:45 Condition: stable 23:45 Discharge instructions given to patient, Instructed on discharge instructions, follow up and referral plans. medication usage, Demonstrated understanding of instructions, follow-up care, medications, Prescriptions given X 3. 23:49 Patient left the ED. rr5 Signatures: Dispatcher [employer] EDLA Nat Torres, Laxmi, RN RN aa5 Teresita Orozco RN RN ed1 Harrison Agudelo PA PA cp Vicente, Ronaldo, RN RN Ryder Silva RN RN rr5
[2018-12-16] MEDS ORDERED: KETOROLAC 30 MG/ML INJ ONE (22:27)
[2018-12-16] MEDS ORDERED: HYDROCODONE/APAP 7.5/325 MG TAB ONE (22:27)
--- NOTE | 2018-12-16 22:52 | P.CNS ---
Date of Consult: 12/16/18 Patient is a 33 y/o who presents to the ED today with recurrent pelvic pain. Patient was discharged home on Thursday after being admitted for 48 hours to treat a possible left TOA. Patient was given IV antibiotics and minimal pain medications. Patient left the hospital that day without any pain and was eager to return to work the next day. Patient states now that she had pain on Thursday night when she was home. Patient states that the pain has not gone away. Patient denies fever. Reviewed with patient that her IUD, which has been in for many years after needed removal since she has not seen an BIOMEDICAL SERVICE ENGINEER in many years, may be the source of the infection. Discussed with patient that I recommend that we remove it now and continue with outpatient antibiotics. PMH: obesity, lack of care PSHx: Cholecystectomy; Appendectomy; Exam: resting in bed Head/Neck: NCAT, supple Resp: symmetric; non-labored breathing ABD: soft, obese, non-distended, slightly tender in the midline Pelvic: normal external female genitalia; Vagina: pink, moist, normal rugae, mild to moderate discharge present; Cervix: IUD strings seen and grasped with a ring clamp and removed without difficulty - IUD inspected and noted to be intact , slight change in color of the IUD; Uterus: unable to palpate well due to obesity, however non-tender; Adnexa: difficult to examine due to obesity Laboratory Tests 12/16/18 12/16/18 18:50 18:50 WBC 18.2 H D Hgb 11.9 L Hct 35.8 L Plt Count 374 D Glucose 158 H Name: BREA JO Acct Number: [id number] : 1985 Age: 33 Sex: F Unit Number: [id number] Ord Phys: Harrison Agudelo [facility] Care Dr: Deonte Roberts MD Status: [facility] ER Exam Date: 12/16/18 Report Status: Signed EXAM DESCRIPTION: US - Transvaginal Study Probe - 12/16/2018 8:01 pm CLINICAL HISTORY: left adnexal pain with history tubo-ovarian abscess Pelvic pain. COMPARISON: Transvaginal Study Probe dated 12/10/2018 FINDINGS: The uterus is normal in size, shape and echotexture. The uterus measures 8.3 x 4.8 x 4.7 cm. The fundal endometrium is seen to be thin and contain an IUD. The left ovary is enlarged in size measuring 6.9 x 6.2 x 5.7 cm. 4.5 x 4.1 x 3.6 cm lesion is seen within the left ovary suspicious for hemorrhagic cyst or endometrioma. Doppler blood flow was noted to the left ovary. The right ovary was obscured by bowel gas. No pelvic ascites. IMPRESSION: Enlarged left ovary containing circumscribed hypoechoic lesion, suspicious for a hemorrhagic cyst or endometrioma. The size of the ovary and the lesion appear mildly increased since comparative study.Ovarian torsion is not identified as Doppler blood flow is seen to the left ovary. Dictated By: Hans Agarwal MD 12/16/182009 Signed By: Hans Agarwal MD 12/16/182009 Circulation Manager: MATHEW 12/16/182009 33 y/o obese female with left ovarian cyst and s/p IUD removal. Patient given rx for flagyl to begin as well as doxycycline. Patient instructed to decrease glucose in her diet. Patient to follow up in the office on Thursday and will repeat imaging next week. Return to ED for further increase in pain or for fever. Patient declines contraception at this time.
[2018-12-16 23:56] VITALS: TEMP 99.8
[2018-12-16 23:58] VITALS: BP 120/70
[2018-12-16 23:59] VITALS: O2SAT 99
== END 2018-12-16 23:49 | disposition home or self-care (01) ==
LOC: ER 17:09
DX: N83.202 Unspecified ovarian cyst, left side (principal)
CPT/HCPCS: 36415; 76830; 80048; 80076; 81003; 81015; 81025; 83605; 83690; 84145; 85025; 87040; 87070; 87077; 87186; 87205; 96361; 96365; 96375; 99284; J0696; J2405; J7030

== ENCOUNTER 2020-11-17 19:21 | Emergency (ER) | payer OTHER ==
[2020-11-17 20:31] LABS: Absolute Lymphocytes (CBC) 2.9 K/uL (0.7-4.9); Basophils % 0.5 % (0-1.3); Hematocrit 41.8 % (36.0-45.0); MPV 8.9 fL (7.6-11.3); RBC Red Blood Cell Count 4.76 M/uL (3.86-4.86)
[2020-11-17 20:58] LABS: Protime INR 0.97
[2020-11-17 20:59] LABS: ALT/SGPT 46 U/L (12-78); AST/SGOT 17 U/L (15-37); Albumin 4.1 g/dL (3.4-5.0); Alkaline Phosphatase 98 U/L (45-117); BUN Blood Urea Nitrogen 10 mg/dL (7-18); Bicarbonate 27 mmol/L (21-32); Bilirubin Direct 0.1 mg/dL (0-0.2); Bilirubin Total 0.5 mg/dL (0.2-1.0); Glucose Level 219 mg/dL (74-106); Magnesium 1.7 mg/dL (1.8-2.4); NT PRO-BNP 17 pg/mL (<125); Potassium 3.7 mmol/L (3.5-5.1); Protein, Total 7.7 g/dL (6.4-8.2); Sodium Level 137 mmol/L (136-145); Troponin (Emerg Dept Use Only) < 0.02 ng/mL (0.0-0.045)
[2020-11-17] MEDS ORDERED: ONDANSETRON 4 MG/2 ML VIAL ONE (21:46)
[2020-11-17] MEDS ORDERED: MORPHINE 4 MG/ML SYR ONE (21:46)
--- NOTE | 2020-11-17 22:37 | EDPHYS ---
Physician Documentation [facility] Name: Chantal Park Age: 35 yrs Sex: Female : 1985 Arrival Date: 11/17/2020 Time: 19:23 Bed 19 Private MD: ED Physician Kaden Mccann HPI: 11/17 22:26 This 35 yrs old Female presents to ER via Ambulatory with complaints of Chest kb Pain > 30 y/o. 22:26 The patient or guardian reports chest pain that is located primarily in the substernal kb area. The pain does not radiate. Associated signs and symptoms: The patient has no apparent associated signs or symptoms. The chest pain is described as sharp. Duration: The patient or guardian reports multiple episodes, that are intermittent, with no pattern. Modifying factors: The symptoms are alleviated by nothing. the symptoms are aggravated by nothing. Severity of pain: At its worst the pain was moderate in the emergency department the pain has improved. The patient has not experienced similar symptoms in the past. The patient has not recently seen a physician. Pt reports intermittent pain to center of chest for a week. Denies n/v, cough, congestion, fever, chills, shortness of breath. Denies similar symptoms in the past, personal or family history of heart disease. . 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 - Social history:: Smoking status: Patient denies any tobacco usage or history of. ROS: 22:26 Constitutional: Negative for fever, chills, and weight loss, Respiratory: Negative for kb shortness of breath, cough, wheezing, and pleuritic chest pain, Abdomen/GI: Negative for abdominal pain, nausea, vomiting, diarrhea, and constipation, MS/Extremity: Negative for injury and deformity, Skin: Negative for injury, rash, and discoloration, Neuro: Negative for headache, weakness, numbness, tingling, and seizure. 22:26 Cardiovascular: Positive for chest pain, Negative for edema, orthopnea, palpitations, paroxysmal nocturnal dyspnea. Exam: 22:26 Constitutional: This is a well developed, well nourished patient who is awake, alert, kb and in no acute distress. Head/Face: Normocephalic, atraumatic. Chest/axilla: Normal chest wall appearance and motion. Cardiovascular: Regular rate and rhythm with a normal S1 and S2. No gallops, murmurs, or rubs. No pulse deficits. Respiratory: Lungs have equal breath sounds bilaterally, clear to auscultation. No rales, rhonchi or wheezes noted. No increased work of breathing, no retractions or nasal flaring. Abdomen/GI: Soft, non-tender, with normal bowel sounds. No distension. No guarding or rebound. No evidence of tenderness throughout. Skin: Warm, dry with normal turgor. Normal color with no rashes, no lesions, and no evidence of cellulitis. MS/ Extremity: Pulses equal, no cyanosis. Neurovascular intact. Full, normal range of motion. Neuro: Awake and alert, GCS 15, oriented to person, place, time, and situation. Cranial nerves II-XII grossly intact. Moves all extremities. Sensory grossly intact. Cerebellar exam normal. Normal gait. Vital Signs: 19:29 BP 154 / 106; Pulse 85; Resp 16 S; Temp 98.1(TE); Pulse Ox 100% on R/A; Weight 117.93 ca1 kg (R); Height 5 ft. 2 in. (157.48 cm) (R); Pain 6/10; 19:29 Body Mass Index 47.55 (117.93 kg, 157.48 cm) ca1 MDM: 20:05 Patient medically screened. kb 22:26 Data reviewed: vital signs, nurses notes. Data interpreted: Pulse oximetry: on room air kb is 100 %. Interpretation: normal. 22:35 ADNO Risk Score: TOTAL SCORE = 0. Counseling: I had a detailed discussion with the patient and/or guardian regarding: the historical points, exam findings, and any diagnostic results supporting the discharge/admit diagnosis, lab results, radiology results, the need for outpatient follow up, a family practitioner, to return to the emergency department if symptoms worsen or persist or if there are any questions or concerns that arise at home. 11/17 20:06 Order name: Basic Metabolic Panel; Complete Time: 21:09 11/17 20:06 Order name: CBC with Diff; Complete Time: 20:38 kb 11/17 20:06 Order name: LFT's; Complete Time: 21:09 kb 11/17 20:06 Order name: Magnesium; Complete Time: 21:09 kb 11/17 20:06 Order name: NT PRO-BNP; Complete Time: 21:09 kb 11/17 20:06 Order name: PT-INR; Complete Time: 21:09 kb 11/17 19:32 Order name: EKG; Complete Time: 19:33 ca1 11/17 19:32 Order name: EKG - Nurse/Tech; Complete Time: 19:41 ca1 11/17 20:06 Order name: Troponin (emerg Dept Use Only); Complete Time: 21:09 kb 11/17 20:06 Order name: Cardiac monitoring; Complete Time: 20:22 kb 11/17 21:50 Order name: Troponin (emerg Dept Use Only); Complete Time: 22:35 kb 11/17 20:06 Order name: IV Saline Lock; Complete Time: 20:22 kb 11/17 20:06 Order name: Labs collected and sent; Complete Time: 20:22 kb 11/17 20:06 Order name: O2 Per Protocol; Complete Time: 20:22 kb 11/17 20:06 Order name: O2 Sat Monitoring; Complete Time: 20:22 kb 11/17 21:50 Order name: EKG - Nurse/Tech kb Administered Medications: 21:39 Drug: morphine 4 mg Route: IVP; Site: right antecubital; ll2 21:40 Drug: Zofran (Ondansetron) 4 mg Route: IVP; Site: right antecubital; ll2 Disposition: 11/18 20:09 Co-signature as Attending Physician, Kaden Mccann MD. [email or web address] Disposition: 11/17/20 22:36 Discharged to Home. Impression: Chest pain, unspecified. - Condition is Stable. - Discharge Instructions: Nonspecific Chest Pain, [id number]. - Medication Reconciliation Form, Thank You Letter, Antibiotic Education, Prescription Opioid Use form. - Follow up: Emergency Department; When: As needed; Reason: Worsening of condition. Follow up: Private Physician; When: 2 - 3 days; Reason: Recheck today's complaints, Continuance of care, Re-evaluation by your physician. Signatures: Dispatcher [employer] EDMS Ingrid Arvizu, PSYCHOLOGY DEPARTMENT CHAIR-C PSYCHOLOGY DEPARTMENT CHAIR-Ckb Elza Hopkins RN RN ca1 Lizabeth Gardner RN RN ll2 Kaden Mccann MD MD [email or web address] Corrections: (The following items were deleted from the chart) 11/17 23:13 22:36 11/17/2020 22:36 Discharged to Home. Impression: Chest pain, unspecified. ll2 Condition is Stable. Forms are Medication Reconciliation Form, Thank You Letter, Antibiotic Education, Prescription Opioid Use. Follow up: Emergency Department; When: As needed; Reason: Worsening of condition. Follow up: Private Physician; When: 2 - 3 days; Reason: Recheck today's complaints, Continuance of care, Re-evaluation by your physician. kb
--- NOTE | 2020-11-17 22:37 | ER ---
Nurse's Notes [facility] Name: Chantal Park Age: 35 yrs Sex: Female : 1985 Arrival Date: 11/17/2020 Time: 19:23 Bed 19 Private MD: Diagnosis: Chest pain, unspecified Presentation: 11/17 19:29 Chief complaint: Patient states: Chest pain since Thursday, comes and goes. 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 Coronavirus screen: Client denies travel out of the [place] in the last 14 days. At this time, the client does not indicate any symptoms associated with coronavirus-19. Ebola Screen: Patient negative for fever greater than or equal to 101.5 degrees Fahrenheit, and additional compatible Ebola Virus Disease symptoms Patient denies exposure to infectious person. Patient denies travel to an Ebola-affected area in the 21 days before illness onset. No symptoms or risks identified at this time. Initial Sepsis Screen: Does the patient meet any 2 criteria? No. Patient's initial sepsis screen is negative. Does the patient have a suspected source of infection? No. Patient's initial sepsis screen is negative. Risk Assessment: Do you want to hurt yourself or someone else? Patient reports no desire to harm self or others. Onset of symptoms was November 17, 2020. 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 - Social history:: Smoking status: Patient denies any tobacco usage or history of. Screenin:00 Abuse screen: Denies threats or abuse. Nutritional screening: No deficits noted. ll2 Tuberculosis screening: No symptoms or risk factors identified. Fall Risk None identified. Assessment: 20:00 General: Appears in no apparent distress. Behavior is calm, cooperative, appropriate ll2 for age. Pain: Complains of pain in chest Pain does not radiate. Neuro: Level of Consciousness is awake, alert, obeys commands, Oriented to person, place, time, situation. Cardiovascular: Patient's skin is warm and dry. Respiratory: Airway is patent Respiratory effort is even, unlabored, Respiratory pattern is regular, symmetrical. GI: No signs and/or symptoms were reported involving the gastrointestinal system. : No signs and/or symptoms were reported regarding the genitourinary system. EENT: No signs and/or symptoms were reported regarding the EENT system. Derm: Skin is intact, is healthy with good turgor, Skin is dry, Skin is pink, warm \T\ dry. Musculoskeletal: Circulation, motion, and sensation intact. Range of motion: intact in all extremities. Vital Signs: 19:29 BP 154 / 106; Pulse 85; Resp 16 S; Temp 98.1(TE); Pulse Ox 100% on R/A; Weight 117.93 ca1 kg (R); Height 5 ft. 2 in. (157.48 cm) (R); Pain 6/10; 19:29 Body Mass Index 47.55 (117.93 kg, 157.48 cm) ca1 ED Course: 19:23 Patient arrived in ED. bp1 19:31 Triage completed. ca1 19:31 Arm band placed on right wrist. EKG completed in triage. Results shown to MD. ca1 20:00 Patient has correct armband on for positive identification. Placed in gown. Bed in low ll2 position. Call light in reach. Side rails up X 1. staff physical therapy assistant on. Pulse ox on. NIBP on. 20:00 No provider procedures requiring assistance completed. IV discontinued, intact, ll2 bleeding controlled, No redness/swelling at site. Pressure dressing applied. 20:05 Ingrid Arvizu FNP-C is PHCP. kb 20:05 Kaden Mccann MD is Attending Physician. kb 20:22 Inserted saline lock: 20 gauge in right antecubital area, using aseptic technique. dh4 Blood collected. 20:26 Lizabeth Gardner, BLANCA is Primary Nurse. ll2 Administered Medications: 21:39 Drug: morphine 4 mg Route: IVP; Site: right antecubital; ll2 21:40 Drug: Zofran (Ondansetron) 4 mg Route: IVP; Site: right antecubital; ll2 Outcome: 20:00 Discharged to home ambulatory. ll2 20:00 Condition: stable 20:00 Discharge instructions given to patient, Instructed on discharge instructions, follow up and referral plans. Demonstrated understanding of instructions, follow-up care. 22:36 Discharge ordered by . kb 23:13 Patient left the ED. ll2 Signatures: Ingrid Arvizu, DEGREASING WHEEL OPERATOR-C DEGREASING WHEEL OPERATOR-Elza Griffith, RN RN ca1 Trent Saenz 4 Lizabeth Gardner RN RN 2 Elsa Yancey [facility]
[2020-11-17 23:20] VITALS: BP 154/106; TEMP 98.1; O2SAT 100
== END 2020-11-17 23:13 | disposition home or self-care (01) ==
LOC: ER 19:21
DX: R07.9 Chest pain, unspecified (principal); E11.9 Type 2 diabetes mellitus without complications
CPT/HCPCS: 93005; 85025; 80048; 36415; 83735; 85610; 80076; 84484 ×2; 83880; 96375; 96374; 99284; J2405

== ENCOUNTER 2022-01-07 09:07 | Emergency (ER) | payer OTHER ==
--- OUTSIDE RECORDS SUMMARY | 2022-01-07 09:09 | XMS REPORT | Continuity of Care Document ---
:1985 Author Organization [facility] t Address [address] [place] [address] Care Team Providers Name Role Phone JANEL LOUIS JR Primary Care Physician Unavailable CARTER Attending Clinician Unavailable 2, Lab Attending Clinician Unavailable Carter ARENAS Attending Clinician Payers Payer Name Policy Type Policy Number Effective Date Expiration Date [id number] 2021 00:00:00 OUT OF STATE Problems Condition Condition Condition Status Onset Resolution Last Treating Co mments Source Name Details Category Date Date Treatment Clinician Date No known No known Disease Unive rs active active ity of problems problems [facility] Allergies, Adverse Reactions, Alerts Allergy Allergy Status Severity Reaction(s) Onset Inactive Treating Comm ents Source Name Type Date Date Clinician NO KNOWN Drug Active Univers ALLERGIE Class ity of S [facility] Social History Social Habit Start Date Stop Date Quantity Comments Source Exposure to Not sure University of SARS-CoV-2 [facility] [place] (event) [facility] Tobacco use and 2021-12-23 2021-12-23 Never used Universit y of exposure 00:00:00 00:00:00 [facility] Alcohol intake 2021-12-23 2021-12-23 Current drinker Unive rsity of 00:00:00 00:00:00 of alcohol [facility] [place] (finding) [place] Sex Assigned At [birth year] Universit y of 00:00:00 00:00:00 [facility] Smoking Status Start Date Stop Date Source Never smoker [facility] Medications Ordered Filled Start Stop Current Ordering Indication Dosage Frequency Signature Comments Components Source Medication Medication Date Date Medication? Clinician (SIG) Name Name No known No Univers medications 4-11 ity of 15:33: [address] No known No Univers medications 4-11 ity of 15:33: [address] Vital Signs Vital Name Observation Time Observation Value Comments Source Systolic blood 2021-12-23 19:50:00 138 mm[Hg] Univer sity pressure [facility] Diastolic blood 2021-12-23 19:50:00 88 mm[facility]Hg[facility] 2021-12-23 19:37:00 87 /min [facility] Body temperature 2021-12-23 19:37:00 36.72 Monika [facility] rate 2021-12-23 19:37:00 18 /min [facility] Body height 2021-12-23 19:37:00 157.5 cm [facility] Body weight 2021-12-23 19:37:00 112.492 kg [facility] BMI 2021-12-23 19:37:00 45.36 kg/m2 [facility] Procedures This patient has no known procedures. 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 Lab [facility] [id number] [facility] 16:00:00 16:00:00 Visit Mariel Machado [id number] [facility] [id number] Jamie BURROWS [phone] [address] BUILDING 2021-12-23 2021-12-23 Office Carter WIHUNTER [id number] Univers 14:30:00 15:30:26 Visit Mariel MEHTA [id number] i Kelsey [id number] Jamie bolaños PROFESSIO [phone] Nd eliane NAL 134 [facility] 2021-12-23 2021-12-23 Outpatient R CARTER [facility] [id number] [facility] 14:30:00 15:30:26 MARIEL boyd of [facility] Results This patient has no known results.
--- NOTE | 2022-01-07 10:54 | RAD REPORT ---
EXAM DESCRIPTION: RAD - Hand Right 3 View - 01/07/2022 10:26 am CLINICAL HISTORY: swelling and pain to right 4th proximal digit COMPARISON: No comparisons FINDINGS: Soft tissue swelling is present proximal aspect of the right fourth finger. No bone or leeann nt abnormality seen. No foreign body identified. The remainder the hand shows no acute bone, joint or soft tissue finding. No foreign body. IMPRESSION: Right fourth digit soft tissue swelling with no acute bone or joint finding.
--- NOTE | 2022-01-07 11:02 | ER ---
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 Coronavirus screen: Vaccine status: Patient reports receiving the 2nd dose of the covid vaccine. Client denies travel out of the [place] in the last 14 days. Ebola Screen: Patient denies exposure to infectious person. Patient denies travel to an Ebola-affected area in the 21 days before illness onset. Initial Sepsis Screen: Does the patient meet any 2 criteria? No. Patient's initial sepsis screen is negative. Does the patient have a suspected source of infection? No. Patient's initial sepsis screen is negative. Risk Assessment: Do you want to hurt yourself or someone else? Patient reports no desire to harm self or others. Onset of symptoms was January 07, 2022. 09:19 Method Of Arrival: Ambulatory [facility] 09:19 Acuity: JOVAN 4 vg1 Triage Assessment: 09:21 General: Appears comfortable, Behavior is calm, cooperative. Pain: Complains of pain in vg1 palmar aspect of proximal phalanx of right ring finger Pain currently is 3 out of 10 on a pain scale. Musculoskeletal: Swelling present in palmar aspect of proximal phalanx of right ring finger. Historical: - Allergies: 09:21 No Known Allergies; vg1 - Home Meds: 09:21 None [Active]; vg1 - PMHx: 09:21 Diabetes - NIDDM; vg1 - PSHx: :21 Cholecystectomy; Appendectomy; section; vg1 - Immunization history:: Client reports receiving the 2nd dose of the Covid vaccine. - Social history:: Smoking status: Patient denies any tobacco usage or history of. - Family history:: not pertinent. - Hospitalizations: : No recent hospitalization is reported. Screenin:30 Abuse screen: Denies threats or abuse. Denies injuries from another. Nutritional bp screening: No deficits noted. Tuberculosis screening: No symptoms or risk factors identified. Fall Risk None identified. Assessment: 09:30 General: SEE TRIAGE NOTE. bp 11:19 Reassessment: PT D/C AMBULATORY, DX WITH CONTUSION. bp Vital Signs: 09:19 Resp 16; Temp 97.3; Pulse Ox 100% ; Weight 111.13 kg; Height 5 ft. 2 in. (157.48 cm); vg1 Pain 3/10; 11:19 Pulse 87; Resp 17; Pulse Ox 100% ; bp 09:19 Body Mass Index 44.81 (111.13 kg, 157.48 cm) vg1 ED Course: 09:09 Patient arrived in ED. am2 09:13 Caesar Cordova, RN is Primary Nurse. bp 09:13 Thuan Montalvo MD is Attending Physician. rn 09:21 Triage completed. vg1 09:21 Arm band placed on. vg1 09:30 Patient has correct armband on for positive identification. Bed in low position. Call bp light in reach. Side rails up X2. 10:27 XRAY Hand RIGHT 3 View In Process Unspecified. EDMS 11:19 No provider procedures requiring assistance completed. Patient did not have IV access bp during this emergency room visit. Administered Medications: No medications were administered Outcome: 11:01 Discharge ordered by . rn 11:19 Discharged to home ambulatory. bp 11:19 Condition: stable 11:19 Discharge instructions given to patient, Instructed on discharge instructions, follow up and referral plans. Demonstrated understanding of instructions, follow-up care. 11:20 Patient left the ED. bp Signatures: Dispatcher [employer] EDMS Thuan Montalvo MD MD rn Moreno, Amanda am2 Caesar Cordova, RN RN Shraddha Forrester RN RN vg1
--- NOTE | 2022-01-07 11:02 | EDPHYS ---
Physician Documentation [facility] Name: Chantal Park Age: 36 yrs Sex: Female : 1985 Arrival Date: 01/07/2022 Time: 09:09 Bed 6 Private MD: ED Physician Thuan Montalvo HPI: 01/07 09:22 This 36 yrs old Female presents to ER via Ambulatory with complaints of Finger rn Injury. 09:22 Trauma demographics: Location of Injury: The injury occurred at work. Mechanism of rn injury:. Associated injuries: The patient sustained right hand. Onset: The symptoms/episode began/occurred just prior to arrival. The patient has not experienced similar symptoms in the past. The patient has not recently seen a physician. Pt reports right 4th finger injury while putting away linens, was wearing ring and got it snagged, felt ring poked her finger and has noticed swelling to proximal right 4th finger. No laceration or puncture. No numbness/tingling. . Historical: - Allergies: :21 No Known Allergies; vg1 - Home Meds: : None [Active]; vg1 - PMHx: 09:21 Diabetes - NIDDM; vg1 - PSHx: 09:21 Cholecystectomy; Appendectomy; section; vg1 - Immunization history:: Client reports receiving the 2nd dose of the Covid vaccine. - Social history:: Smoking status: Patient denies any tobacco usage or history of. - Family history:: not pertinent. - Hospitalizations: : No recent hospitalization is reported. 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 Skin: Warm, dry, no open wounds MS/ Extremity: Pulses equal, no cyanosis. Neurovascular intact. Mild painful flexion of right 4th finger with mild swelling and ecchymosis to right proximal 4th finger Vital Signs: 09:19 Resp 16; Temp 97.3; Pulse Ox 100% ; Weight 111.13 kg; Height 5 ft. 2 in. (157.48 cm); vg1 Pain 3/10; 11:19 Pulse 87; Resp 17; Pulse Ox 100% ; bp 09:19 Body Mass Index 44.81 (111.13 kg, 157.48 cm) vg1 MDM: 09:13 Patient medically screened. rn 11:00 Differential diagnosis: finger fracture, contusion, capillary/vessel injury. Data rn reviewed: vital signs, nurses notes, radiologic studies, plain films, and as a result, I will discharge patient. Counseling: I had a detailed discussion with the patient and/or guardian regarding: the historical points, exam findings, and any diagnostic results supporting the discharge/admit diagnosis, radiology results, the need for outpatient follow up, to return to the emergency department if symptoms worsen or persist or if there are any questions or concerns that arise at home. Special discussion: I discussed with the patient/guardian in detail that at this point there is no indication for admission to the hospital. It is understood, however, that if the symptoms persist or worsen the patient needs to return immediately for re-evaluation. 01/07 09:19 Order name: XRAY Hand RIGHT 3 View; Complete Time: 11:00 rn Administered Medications: No medications were administered Disposition Summary: 01/07/22 11:01 Discharge Ordered Location: Home rn Problem: new rn Symptoms: have improved rn Condition: Stable rn Diagnosis - Contusion of right ring finger without damage to nail, initial encounter rn Followup: rn - With: Private Physician - When: As needed - Reason: Recheck today's complaints, Re-evaluation by your physician Discharge Instructions: - Discharge Summary Sheet rn - Hand Contusion rn - Hematoma rn Forms: - Medication Reconciliation Form rn - Thank You Letter rn - 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
[2022-01-07 11:24] VITALS: TEMP 97.3; O2SAT 100
== END 2022-01-07 11:20 | disposition home or self-care (01) ==
LOC: ER 09:07
DX: S60.041A Contusion of right ring finger without damage to nail, initial encounter (principal); E11.9 Type 2 diabetes mellitus without complications
CPT/HCPCS: 99283

== ENCOUNTER 2022-09-20 18:42 | Emergency (ER) | payer BC, OTHER ==
--- OUTSIDE RECORDS SUMMARY | 2022-09-20 18:44 | XMS REPORT | Continuity of Care Document ---
:1985 Author Organization [facility] t Address [address] [place] [address] Care Team Providers Name Role Phone JANEL LOUIS JR Primary Care Physician Unavailable MARIEL MACHADO Attending Clinician Unavailable 2, Adc Lab Attending Clinician Unavailable Mariel Machado PA-C Attending Clinician Doctor Unassigned, [place] Attending Clinician Unavailable Payers Payer Name Policy Type Policy Number Effective Date Expiration Date S [facility] - [id number] 2021 00:00:00 OUT OF STATE Problems Condition Condition Condition Status Onset Resolution Last Treating Co mments Source Name Details Category Date Date Treatment Clinician Date No known No known Disease Unive rs active active ity of problems problems [facility] Allergies, Adverse Reactions, Alerts Allergy Allergy Status Severity Reaction(s) Onset Inactive Treating Comm ents Source Name Type Date Date Clinician NO KNOWN Drug Active Univers ALLERGIE Class ity of S [facility] Social History Social Habit Start Date Stop Date Quantity Comments Source Exposure to Not sure University of SARS-CoV-2 [facility] (event) [facility] Tobacco use and 2021-12-23 2021-12-23 Never used Universit y of exposure 00:00:00 00:00:00 [facility] Alcohol intake 2021-12-23 2021-12-23 Current drinker Unive rsity of 00:00:00 00:00:00 of alcohol [facility] (finding) [facility] Sex Assigned At [birth year] Universit y of 00:00:00 00:00:00 [facility] Smoking Status Start Date Stop Date Source Never smoker [facility] Medications Ordered Filled Start Stop Current Ordering Indication Dosage Frequency Signature Comments Components Source Medication Medication Date Date Medication? Clinician (SIG) Name Name No known No Univers medications 4-11 ity of 15:33: [address] No known No Univers medications 4-11 ity of 15:33: [address] Vital Signs Vital Name Observation Time Observation Value Comments Source Systolic blood 2021-12-23 19:50:00 138 mm[Hg] Univer sity pressure [facility] Diastolic blood 2021-12-23 19:50:00 88 mm[Hg] Unive rsity of [facility] Heart rate 2021-12-23 19:37:00 87 /min [facility] Body temperature 2021-12-23 19:37:00 36.72 Monika [facility] rate 2021-12-23 19:37:00 18 /min [facility] Body height 2021-12-23 19:37:00 157.5 cm [facility] Body weight 2021-12-23 19:37:00 112.492 kg [facility] BMI 2021-12-23 19:37:00 45.36 kg/m2 [facility] Procedures This patient has no known procedures. 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 [facility] [id number] Univers 16:00:00 16:00:00 Visit Mariel Machado [id number] ity [id number] [phone] Ny dical NAL [address] [facility] 2021-12-23 2021-12-23 Office Carter [facility] [id number] Univers 14:30:00 15:30:26 Visit Mariel MEHTA [id number] i [id number] [phone] Ny dical NAL [address] [facility] 2021-12-23 2021-12-23 Outpatient R CARTER [facility] [id number] Univers 14:30:00 15:30:26 MARIEL [facility] 2021-12-23 2021-12-23 Outpatient R CARTER [facility] [id number] Univers 14:30:00 15:30:26 [facility] 2021-12-23 2021-12-23 Orders Doctor FERNANDO [id number] Univers 00:00:00 00:00:00 Only Unassigned, ANY [id number] ity of [place] [facility] [id number] Dk as [phone] [place] [id number] [place] Results This patient has no known results.
[2022-09-20] MEDS ORDERED: IBUPROFEN 400 MG TAB ONE (20:01)
[2022-09-20] MEDS ORDERED: IBUPROFEN 200 MG TAB PO ONE (20:01)
--- NOTE | 2022-09-20 21:39 | RAD REPORT ---
EXAM DESCRIPTION: RAD - Wrist Left 3 View - 09/20/2022 9:32 pm CLINICAL HISTORY: PAIN COMPARISON: No comparisons FINDINGS/IMPRESSION: No acute fracture. No malalignment. No significant focal degenerative changes.
--- NOTE | 2022-09-20 22:23 | EDPHYS ---
Physician Documentation [facility] [place] Name: Chantal Park Age: 37 yrs Sex: Female : 1985 Arrival Date: 09/20/2022 Time: 18:46 Bed 27 Private MD: ED Physician Leeanne Jo HPI: 09/21 00:32 This 37 yrs old Female presents to ER via Ambulatory with complaints of Wrist kb Injury. 00:32 The patient or guardian reports decreased range of motion, pain, tenderness. The kb complaints affect the left wrist diffusely. Context: The problem was sustained at home, resulted from Moving boxes of RECESS. decorations.. Onset: The symptoms/episode began/occurred today. Modifying factors: The symptoms are alleviated by nothing, the symptoms are aggravated by movement. Associated signs and symptoms: The patient has no apparent associated signs or symptoms. The patient has not experienced similar symptoms in the past. The patient has not recently seen a physician. 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 - Social history:: Smoking status: Patient denies any tobacco usage or history of. ROS: 09/21 00:31 Constitutional: Negative for fever, chills, and weight loss. kb MS/extremity: Positive for pain, of the left wrist. All other systems are negative. Exam: 00:31 Constitutional: This is a well developed, well nourished patient who is awake, alert, kb and in no acute distress. Head/Face: Normocephalic, atraumatic. ENT: Moist Mucous membranes Cardiovascular: Regular rate and rhythm with a normal S1 and S2. No gallops, murmurs, or rubs. No pulse deficits. Respiratory: Respirations even and unlabored. No increased work of breathing. Talking in full sentences Abdomen/GI: Soft, non-tender. No distention Skin: Warm, dry with normal turgor. Normal color. Neuro: Awake and alert, GCS 15, oriented to person, place, time, and situation. Moves all extremities. Normal gait. Psych: Awake, alert, with orientation to person, place and time. Behavior, mood, and affect are within normal limits. 00:31 Musculoskeletal/extremity: Extremities: grossly normal except: noted in the left wrist: decreased ROM, pain, tenderness, ROM: limited active range of motion due to pain, in the left wrist, Circulation is intact in all extremities. Sensation intact. Vital Signs: 09/20 19:51 Pulse 98; Resp 22 S; Temp 98.1(O); Pulse Ox 100% on R/A; Weight 108.86 kg (R); Height 5 aa9 ft. 2 in. (157.48 cm); 19:57 BP 142 / 81; aa9 22:10 BP 129 / 92; Pulse 90; Resp 16; Pulse Ox 98% ; Pain 4/10; fu 22:10 BP 107 / 74; Pulse 62; Resp 16; Pulse Ox 99% ; Pain 4/10; fu 22:21 Pain 4/10; fu 19:51 Body Mass Index 43.90 (108.86 kg, 157.48 cm) aa9 MDM: 19:51 Patient medically screened. kb 09/21 00:31 Differential diagnosis: closed fracture, Sprain, strain. Data reviewed: vital signs, kb nurses notes. Data interpreted: Pulse oximetry: on room air is 98 %. Interpretation: normal. Counseling: I had a detailed discussion with the patient and/or guardian regarding: the historical points, exam findings, and any diagnostic results supporting the discharge/admit diagnosis, radiology results, the need for outpatient follow up, a family practitioner, to return to the emergency department if symptoms worsen or persist or if there are any questions or concerns that arise at home. 09/20 19:53 Order name: Wrist Left (3 View) XRAY; Complete Time: 21:48 kb Administered Medications: 09/20 19:59 Drug: Ibuprofen 600 mg Route: PO; aa9 22:10 Follow up: BP 107 / 74; Pulse 62 bpm; Resp 16 bpm; Pulse Ox 99% ; Pain 4/10 Adult fu 22:21 Follow up: Pain 4/10 Adult fu Disposition Summary: 09/20/22 22:23 Discharge Ordered Location: Home kb Condition: Stable kb Diagnosis - Other specified sprain of left wrist kb Followup: kb - With: Emergency Department - When: As needed - Reason: Worsening of condition Followup: kb - With: Private Physician - When: 2 - 3 days - Reason: Recheck today's complaints, Continuance of care, Re-evaluation by your physician Discharge Instructions: - Discharge Summary Sheet kb - Wrist Sprain, Adult kb Forms: - Medication Reconciliation Form kb - Thank You Letter kb - Antibiotic Education kb - Prescription Opioid Use kb Prescriptions: - Diclofenac Sodium 75 mg Oral tablet,delayed release (DR/EC) - take 1 tablet by ORAL route 2 times per day As needed; 30 tablet; Refills: 0, kb Product Selection Permitted Signatures: Dispatcher [employer] EDIngrid Olson, NOEL-C NOEL-Maria Fernanda Fernández, RN RN aa9 Galindo Daley RN fu
--- NOTE | 2022-09-20 22:23 | ER ---
Nurse's Notes [facility] Name: Chantal Park Age: 37 yrs Sex: Female : 1985 Arrival Date: 09/20/2022 Time: 18:46 Bed 27 Private MD: Diagnosis: Other specified sprain of left wrist Presentation: 09/20 19:51 Chief complaint: Patient states: My L wrist hurts, I picked up a tote and its been aa9 hurting since this this was around lunch time today. Coronavirus screen: Vaccine status: Patient reports receiving the 2nd dose of the covid vaccine. Ebola Screen: No symptoms or risks identified at this time. Initial Sepsis Screen: Does the patient meet any 2 criteria? No. Patient's initial sepsis screen is negative. Does the patient have a suspected source of infection? No. Patient's initial sepsis screen is negative. Risk Assessment: Do you want to hurt yourself or someone else? Patient reports no desire to harm self or others. Onset of symptoms was September 20, 2022. 19:51 Method Of Arrival: Ambulatory aa9 19:51 Acuity: JOVAN 3 aa9 Triage Assessment: 19:56 Pain: Complains of pain in left wrist and left hand Pain does not radiate. Pain aa9 currently is 7 out of 10 on a pain scale. Quality of pain is described as throbbing. Neuro: Level of Consciousness is awake, alert, obeys commands, Oriented to person, place, time, situation. Cardiovascular: Patient's skin is warm and dry. Respiratory: Airway is patent Respiratory effort is even, unlabored. GI: No signs and/or symptoms were reported involving the gastrointestinal system. Musculoskeletal: Swelling present in left wrist and left hand. 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 - Social history:: Smoking status: Patient denies any tobacco usage or history of. Screenin:30 [facility] ED Fall Risk Assessment (Adult) History of falling in the last 3 months, fu including since admission No falls in past 3 months (0 pts). Abuse screen: Denies threats or abuse. Nutritional screening: No deficits noted. Tuberculosis screening: No symptoms or risk factors identified. Assessment: 19:55 General: had 3 alcoholic drinks around 630 PM today. aa9 22:16 General: Appears in no apparent distress. Behavior is calm, cooperative, appropriate fu for age. Pain: Complains of pain in left wrist Pain does not radiate. Pain currently is 4 out of 10 on a pain scale. Neuro: Level of Consciousness is awake, alert, Oriented to person, place, time, situation, Gait is steady, Speech is normal, Facial symmetry appears normal. Respiratory: Respiratory effort is even, unlabored, Respiratory pattern is regular. Derm: Skin is intact. Musculoskeletal: Reports pain in left wrist. Vital Signs: 19:51 Pulse 98; Resp 22 S; Temp 98.1(O); Pulse Ox 100% on R/A; Weight 108.86 kg (R); Height 5 aa9 ft. 2 in. (157.48 cm); 19:57 BP 142 / 81; aa9 22:10 BP 129 / 92; Pulse 90; Resp 16; Pulse Ox 98% ; Pain 4/10; fu 22:10 BP 107 / 74; Pulse 62; Resp 16; Pulse Ox 99% ; Pain 4/10; fu 22:21 Pain 4/10; fu 19:51 Body Mass Index 43.90 (108.86 kg, 157.48 cm) aa9 ED Course: 18:46 Patient arrived in ED. as 18:50 Ingrid Arvizu FNP-C [facility]. kb 18:50 Thuan Montalvo MD is Attending Physician. kb 19:43 Leeanne Jo MD is Attending Physician. kb 19:53 Triage completed. aa9 21:33 Wrist Left (3 View) XRAY In Process Unspecified. EDMS 22:00 Patient has correct armband on for positive identification. Bed in low position. Call fu light in reach. Side rails up X 1. Pulse ox on. NIBP on. 22:06 Galindo Daley, RN is Primary Nurse. fu 22:33 No provider procedures requiring assistance completed. Patient did not have IV access fu during this emergency room visit. Administered Medications: 19:59 Drug: Ibuprofen 600 mg Route: PO; aa9 22:10 Follow up: BP 107 / 74; Pulse 62 bpm; Resp 16 bpm; Pulse Ox 99% ; Pain 4/10 Adult fu 22:21 Follow up: Pain 4/10 Adult fu Medication: 22:18 VIS not applicable for this client. fu Outcome: 22:23 Discharge ordered by . rika 22:34 Discharged to home ambulatory. fu 22:34 Condition: good 22:34 Discharge instructions given to patient, Instructed on discharge instructions, follow up and referral plans. Demonstrated understanding of instructions, follow-up care, medications, Prescriptions given X 1. 22:35 Patient left the ED. fu Signatures: Dispatcher [employer] EDMS Ingrid Arvizu, INTERNAL WHOLESALER-C INTERNAL WHOLESALER-Sonia Kenny Felix, RN RN fu Maria Fernanda White, RN RN aa9
[2022-09-20 23:28] VITALS: TEMP 98.1
[2022-09-20 23:31] VITALS: BP 129/92; O2SAT 98
== END 2022-09-20 22:35 | disposition home or self-care (01) ==
LOC: ER 18:42
DX: S63.592A Other specified sprain of left wrist, initial encounter (principal)
CPT/HCPCS: 99284

== ENCOUNTER 2023-08-19 07:57 | Emergency (ER) | payer OTHER, BC ==
--- OUTSIDE RECORDS SUMMARY | 2023-08-19 08:00 | XMS REPORT | Continuity of Care Document ---
Author Name Unknown Address [address] [facility] [address] [place] [address] [facility] Address [address] [facility] [place] [address] Care Team Providers Care Fisher Diver Net Name Role Phone JANEL LOUIS JR Primary Care Physician RAFAT Garibay Attending Clinician RAFAT Garibay Attending Clinician MARIEL Montoya Attending Clinician Unavailable Doctor Unassigned, Deltana Attending Clinician U mariaa 2, Adc Lab Attending Clinician Unavailable Mariel Machado PA-C Attending Clinician Payers Payer Name Policy Type Policy Number Effective Date Expirati on Date Source [facility] - OUT OF STATE [id number] 2021 00:00:00 Problems Condition Name Condition Details Condition Category Status Onset Date Resolution Date Last Treatment Date Treating Clinician Comments Source Morbid obesity with body mass index of 40.0-49.9 Morbid obesity with body mass index of 40.0-49.9 Disease Active - 00:00: 00 [facility] Dysmenorrh ea Dysmenorrh ea Disease Active 12-23 00:00: 00 [facility] No known active problems No known active problems Disease [facility] Allergies, Adverse Reactions, Alerts Allergy Name Allergy Type Status Severity Reaction(s) Onset Date Inactive Date Treating Clinician Comments Source NO KNOWN ALLERGIE S Drug Class Active [facility] Social History Social Habit Start Date Stop Date Quantity Comments Source Exposure to SARS-CoV-2 (event) 2022-12-13 00:00:00 2022-12-23 07:56:00 Not sure [facility] Tobacco use and exposure 2022-12-23 00:00:00 2022-12-23 00:00:00 Smokeless tobacco non-user [facility] Alcohol intake 2022-12-23 00:00:00 2022-12-23 00:00:00 Current drinker of alcohol (finding) [facility] Alcohol Comment 2022-12-23 00:00:00 2022-12-23 00:00:00 ocassional [facility] Sex Assigned At 1985 00:00:00 1985 00:00:00 [facility] Smoking Status Start Date Stop Date Source Never smoked tobacco [facility] Medications Ordered Medication Name Filled Medication Name Start Date Stop Date Current Medication? Ordering Clinician Indication Dosage Frequency Signature (SIG) Comments Components Source ergocalcife rol, vitamin D2, (VITAMIN D ORAL) 12-23 08:20: 51 Yes Take by mouth. [facility] ergocalcife rol, vitamin D2, (VITAMIN D ORAL) 12-23 08:20: 51 Yes Take by mouth. [facility] ergocalcife rol, vitamin D2, (VITAMIN D ORAL) 12-23 08:20: 51 Yes Take by mouth. [facility] ergocalcife rol, vitamin D2, (VITAMIN D ORAL) 12-23 08:20: 51 Yes Take by mouth. [facility] nystatin 100,000 unit/gram powder 12-23 00:00: 00 Yes [id number] Apply to area(s) 2 (two) times daily. [facility] nystatin 100,000 unit/gram powder 0 12-23 00:00: 00 Yes [id number] Apply to area(s) 2 (two) times daily. [facility] nystatin 100,000 unit/gram powder 12-23 00:00: 00 Yes [id number] Apply to area(s) 2 (two) times daily. [facility] nystatin 100,000 unit/gram powder 12-23 00:00: 00 Yes [id number] Apply to area(s) 2 (two) times daily. [facility] diclofenac 75 mg EC tablet 12-18 00:00: 00 Yes [facility] diclofenac 75 mg EC tablet 0 12-18 00:00: 00 Yes [facility] diclofenac 75 mg EC tablet 0 12-18 00:00: 00 Yes [facility] diclofenac 75 mg EC tablet 0 12-18 00:00: 00 Yes [facility] No known medications 12-23 15:33: 20 No [facility] No known medications 0 12-23 15:33: 20 No [facility] Vital Signs Vital Name Observation Time Observation Value Comments S ource Systolic blood pressure 2022-12-23 13:17:00 120 mm[Hg] [facility] Diastolic blood pressure 2022-12-23 13:17:00 72 mm[Hg] [facility] Heart rate 2022-12-23 13:17:00 91 /min [facility] Body temperature 2022-12-23 13:17:00 36.78 Monika [facility] Body height 2022-12-23 13:17:00 157.5 cm [facility] Body weight 2022-12-23 13:17:00 106.232 kg [facility] BMI 2022-12-23 13:17:00 42.84 kg/m2 [facility] Systolic blood pressure 2021-12-23 19:50:00 138 mm[Hg] [facility] Diastolic blood pressure 2021-12-23 19:50:00 88 mm[Hg] [facility] Heart rate 2021-12-23 19:37:00 87 /min [facility] Body temperature 2021-12-23 19:37:00 36.72 Monika [facility] Respiratory rate 2021-12-23 19:37:00 18 /min [facility] Body height 2021-12-23 19:37:00 157.5 cm [facility] Body weight 2021-12-23 19:37:00 112.492 kg [facility] BMI 2021-12-23 19:37:00 45.36 kg/m2 [facility] Procedures Procedure Date / Time Performed Performing Clinicia n Source ASSIGNMENT OF BENEFITS 2022-12-23 12:57:55 Docto r Unassigned, Deltana [facility] Encounters Start Date/Time End Date/Time Encounter Type Admission Type Attending [facility] Care Facility Care Department Encounter ID Source 2023-01-15 00:00:00 2023-01-15 00:00:00 Outpatient R COLEMAN-NIRMALA S, RAFAT COLEMAN-NIRMALA S, RAFAT [facility] [id number] [facility] 2022-12-23 08:30:00 2022-12-23 08:54:15 Outpatient R BOZENA-NIRMALA S, RAFAT COLEMAN-NIRMALA S, RAFAT [facility] [id number] [facility] 2022-12-23 08:30:00 2022-12-23 08:54:15 Office Visit Bozena-Nirmala s Rafat [facility] [id number] [facility] 2022-12-23 08:30:00 2022-12-23 08:30:00 Outpatient MARIEL BEAR [facility] [id number] [facility] 2022-12-23 08:30:00 2022-12-23 08:30:00 Outpatient MARIEL BEAR [facility] [id number] [facility] 2022-12-23 00:00:00 2022-12-23 00:00:00 Orders Only Doctor Unassigned, Deltana [facility] [id number] [facility] 2021-12-23 16:00:00 2021-12-23 16:00:00 Cdl A Driver Visit 2, [facility] [id number] [facility] 2021-12-23 14:30:00 2021-12-23 15:30:26 Office Visit Kellie [facility] [id number] [facility] 2021-12-23 14:30:00 2021-12-23 15:30:26 Outpatient R KELLIE [facility] [id number] [facility] 2021-12-23 14:30:00 2021-12-23 15:30:26 Outpatient R KELLIE [facility] [id number] [facility] 2021-12-23 00:00:00 2021-12-23 00:00:00 Orders Only Doctor Unassigned, Deltana [facility] [id number] [facility]
[2023-08-19 09:33] LABS: Albumin 3.7 g/dL (3.4-5.0); Bilirubin Direct 0.2 mg/dL (0-0.2); Bilirubin Indirect, Calculated 0.3 mg/dL (0.2-0.8); Bilirubin Total 0.5 mg/dL (0.2-1.0); Protein, Total 7.4 g/dL (6.4-8.2)
[2023-08-19 10:26] LABS: Hepatitis B Core IgM Nonreactive (Nonreactive); Hepatitis B surface AG Interp. Nonreactive (Nonreactive); Hepatitis C Virus Ab Nonreactive (Nonreactive)
--- NOTE | 2023-08-19 10:49 | EDPHYS ---
Physician Documentation [facility] Name: Chantal Park Age: 38 yrs Sex: Female : 1985 Arrival Date: 08/19/2023 Time: 07:57 Bed 11 Private MD: ED Physician Thuan Montalvo HPI: 08/19 10:45 This 38 yrs old Female presents to ER via Ambulatory with complaints of Needle rn Stick Exposure. 10:45 Type of Exposure: needlestick. Area of exposure: Right second fingertip. Onset: The rn symptoms/episode began/occurred just prior to arrival. Symptoms: The patient does not have any acute complaints. The patient has not experienced similar symptoms in the past. Patient states was picking up a plastic object on the elevator floor and got poked by a needle. She showed me a picture and it seems like it is a transfer needle from a butterfly to the tubing and was encased in mcclelland plastic which is why she did not think the needle was in there. Unclear if was used or not was on the floor and did not have blood on it itself. Small puncture wound, superficial to right second digit. No other complaints. Sent here by occupational health.. ART THERAPY SPECIALIST: 10:50 LMP N/A - control method, Not ll1 Historical: - Allergies: 08:10 No Known Allergies; ll1 - PMHx: 08:10 Diabetes - NIDDM; ll1 - PSHx: 08:10 section; Cholecystectomy; Appendectomy; ll1 - Immunization history:: Adult Immunizations up to date. - Social history:: Smoking status: Patient denies any tobacco usage or history of. - Family history:: not pertinent. - Hospitalizations: : No recent hospitalization is reported. ROS: 10:45 Constitutional: Negative for fever, chills, and weight loss, Cardiovascular: Negative rn for chest pain, palpitations, and edema, Respiratory: Negative for shortness of breath, cough, wheezing, and pleuritic chest pain, Abdomen/GI: Negative for abdominal pain, nausea, vomiting, diarrhea, and constipation, Skin: Puncture wound to right second digit Exam: 10:45 Constitutional: This is a well developed, well nourished patient who is awake, alert, rn and in no acute distress. MS/ Extremity: Small puncture wound to right second digit. No cyanosis. No erythema. No active bleeding. Vital Signs: 08:10 BP 159 / 106; Pulse 88; Resp 16; Temp 98.6; Pulse Ox 100% ; Weight 104.33 kg; Height 5 ll1 ft. 2 in. ; Pain 1/10; 10:55 BP 140 / 91; Pulse 74; Resp 17; ll1 08:10 Body Mass Index 42.07 (104.33 kg, 157.48 cm) ll1 08:10 Pain Scale: Adult ll1 MDM: 08:12 Patient medically screened. rn 10:45 Data reviewed: vital signs, nurses notes, and as a result, I will discharge patient. rn Counseling: I had a detailed discussion with the patient and/or guardian regarding the historical points, exam findings, and any diagnostic results supporting the discharge/admit diagnosis, the need for outpatient follow up, to return to the emergency department if symptoms worsen or persist or if there are any questions or concerns that arise at home. Special discussion: I discussed with the patient/guardian in detail that at this point there is no indication for admission to the hospital. It is understood, however, that if the symptoms persist or worsen the patient needs to return immediately for re-evaluation. Based on the history and exam findings, there is no indication for further emergent testing or inpatient evaluation. I discussed with the patient/guardian the need to see the primary care provider for further evaluation of the symptoms. ED course: Hepatitis and HIV testing sent as well as LFTs. Had discussion with patient, possibly unused device, there was no blood on the receiving and or on the and that poked her. After discussion, patient declines prophylactic medication at this time. Will discharge home with follow-up with occupational health and has already scheduled repeat visits and blood test.. 10:45 ED course: Wound cleaned by nurse. rn 08/19 08:30 Order name: Hepatitis Panel; Complete Time: 10:48 rn 08/19 08:30 Order name: LFT's; Complete Time: 10:21 rn 08/19 08:30 Order name: Hepatitis C Virus Ab rn 08/19 08:30 Order name: Hepatitis B surface AG w/Reflex rn 08/19 08:30 Order name: HIV Ag/Ab Combo rn 08/19 10:48 Order name: Wound Care; Complete Time: 10:48 rn Administered Medications: No medications were administered Disposition Summary: 08/19/23 10:49 Discharge Ordered Notes: Location: Home rn Problem: new rn Symptoms: have improved rn Condition: Stable rn Diagnosis - Puncture wound without foreign body of right hand, initial encounter - needlestick rn exposure Followup: rn - With: Private Physician - When: As needed - Reason: Recheck today's complaints, Re-evaluation by your physician Discharge Instructions: - Discharge Summary Sheet rn - Needlestick and Sharps Injury rn Forms: - Medication Reconciliation Form rn - Thank You Letter rn - Antibiotic churn driller helper - Prescription Opioid Use rn - Patient Portal Instructions rn - Leadership Thank You Letter rn - Work release form ll1 Signatures: Dispatcher [employer] Thuan Carrion MD MD rn Lewis, Lynsay, RN RN 1
--- NOTE | 2023-08-19 10:49 | ER ---
Nurse's Notes [facility] Name: Chantal Park Age: 38 yrs Sex: Female : 1985 Arrival Date: 08/19/2023 Time: 07:57 Bed 11 Private MD: Diagnosis: Puncture wound without foreign body of right hand, initial encounter-needlestick exposure Presentation: 08/19 08:10 Chief complaint: Patient states: Stuck by a small needle in hospital hallway while ll1 picking up a piece of trash on the floor 20 min SAND TESTER. R hand 2nd digit. Coronavirus screen: Client denies travel out of the [place] in the last 14 days. At this time, the client does not indicate any symptoms associated with coronavirus-19. Ebola Screen: Patient denies travel to an Ebola-affected area in the 21 days before illness onset. Initial Sepsis Screen: Does the patient meet any 2 criteria? No. Patient's initial sepsis screen is negative. Does the patient have a suspected source of infection? Yes: Skin breakdown/wound. Risk Assessment: Do you want to hurt yourself or someone else? Patient reports no desire to harm self or others. Onset of symptoms was August 19, 2023. 08:10 Method Of Arrival: Ambulatory ll1 08:10 Acuity: JOVAN 3 ll1 Triage Assessment: 08:11 General: Appears uncomfortable, Behavior is calm, cooperative, appropriate for age. ll1 Pain: Complains of pain in right hand Quality of pain is described as aching. Derm: Reports needlestick to R hand 2nd finger. HUMAN FACTORS ADVISOR LEAD: 10:50 LMP N/A - control method, Not ll1 Historical: - Allergies: 08:10 No Known Allergies; ll1 - PMHx: 08:10 Diabetes - NIDDM; ll1 - PSHx: 08:10 section; Cholecystectomy; Appendectomy; ll1 - Immunization history:: Adult Immunizations up to date. - Social history:: Smoking status: Patient denies any tobacco usage or history of. - Family history:: not pertinent. - Hospitalizations: : No recent hospitalization is reported. Screenin:49 [facility] ED Fall Risk Assessment (Adult) Score/Fall Risk Level 0 - 2 = Low Risk ll1 Oriented to surroundings, Maintained a safe environment, Educated pt \T\ family on fall prevention, incl call for assistance when getting out of bed, Hourly rounding (assess needs \T\ fall precautionary measures) done. Abuse screen: Denies threats or abuse. Nutritional screening: No deficits noted. Tuberculosis screening: No symptoms or risk factors identified. Assessment: 10:48 Reassessment: No changes from previously documented assessment. Patient and/or family ll1 updated on plan of care and expected duration. Pain level reassessed. Patient is alert, oriented x 3, equal unlabored respirations, skin warm/dry/pink. 10:55 Reassessment: No changes from previously documented assessment. Patient and/or family ll1 updated on plan of care and expected duration. Pain level reassessed. Vital Signs: 08:10 BP 159 / 106; Pulse 88; Resp 16; Temp 98.6; Pulse Ox 100% ; Weight 104.33 kg; Height 5 ll1 ft. 2 in. ; Pain 1/10; 10:55 BP 140 / 91; Pulse 74; Resp 17; ll1 08:10 Body Mass Index 42.07 (104.33 kg, 157.48 cm) ll1 08:10 Pain Scale: Adult ll1 ED Course: 07:59 Patient arrived in ED. mr 08:00 Thuan Montalvo MD is Attending Physician. rn 08:10 Arm band placed on Patient placed in an exam room, on a stretcher. ll1 08:12 Triage completed. ll1 10:45 Wound care: to puncture located on right hand was cleaned with Hibiclens, Patient ll1 tolerated well. band aid applied. 10:49 No provider procedures requiring assistance completed. Patient did not have IV access ll1 during this emergency room visit. 10:50 Patient has correct armband on for positive identification. Bed in low position. Call ll1 light in reach. Provided Education on: n/a. Administered Medications: No medications were administered Medication: 10:50 VIS not applicable for this client. ll1 Outcome: 10:49 Discharge ordered by . rn 10:49 Discharged to home ambulatory, ll1 10:49 Condition: stable 10:49 Discharge instructions given to patient, Instructed on discharge instructions, follow up and referral plans. Demonstrated understanding of instructions, follow-up care, wound care, 10:56 Patient left the ED. ll1 Signatures: Nat Torres, Reg Reg mr Montalvo, Thuan, MD MD rn Celso, Lynsay, RN RN ll1 Corrections: (The following items were deleted from the chart) : 08:10 Chief complaint: Patient states: Stuck by a small needle in hospital hallway ll1 while picking up a piece of trash on the floor 20 min SAND TESTER. R hand 2nd digit ll1
[2023-08-19 15:54] VITALS: TEMP 98.6; O2SAT 100
[2023-08-19 15:55] VITALS: BP 140/91
== END 2023-08-19 10:56 | disposition home or self-care (01) ==
LOC: ER 07:57
DX: S61.431A Puncture wound without foreign body of right hand, initial encounter (principal); W46.1XXA Contact with contaminated hypodermic needle, initial encounter
CPT/HCPCS: 36415; 80074; 80076; 87389; 99283

== ENCOUNTER 2025-01-20 17:15 | Emergency (ER) | payer BC ==
--- OUTSIDE RECORDS SUMMARY | 2025-01-20 17:17 | XMS REPORT | Continuity of Care Document ---
Author Name Unknown Address [address] [facility] [place] [address] [facility] [place] Address [address] 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 Name Role Phone Alejandra Du MD, [facility] Physici an RAFAT TEJADA Attending Clinician RAFAT Garibay Attending Clinician Darling Dykes DPM Attending Clinician [phone] DARLING PERRY Attending Clinician Ana Maria Jernigan , December A Attending Clinician UnavailMARIEL Garcia Attending Clinician Unavailable Doctor Unassigned, Germania Attending Clinician Concha leroy 2, [facility] Attending Clinician Unavailable Mariel Hopkins PA-C Attending Clinician Payers Payer Name Policy Type Policy Number Effective Date Expirati on Date Source [employer] [place] [id number] 2021 00:00:00 [employer] COMM [id number] 2023 00:00:00 Problems Condition Name Condition Details Condition Category Status Onset Date Resolution Date Last Treatment Date Treating Clinician Comments Source Morbid obesity with body mass index of 40.0-49.9 Morbid obesity with body mass index of 40.0-49.9 Disease Active 12-23 00:00: 00 [facility] Dysmenorrh ea Dysmenorrh ea Disease Active 12-23 00:00: 00 [facility] No known active problems No known active problems Disease [facility] Allergies, Adverse Reactions, Alerts Allergy Name Allergy Type Status Severity Reaction(s) Onset Date Inactive Date Treating Clinician Comments Source NO KNOWN ALLERGIE S Drug Class Active [facility] Social History Social Habit Start Date Stop Date Quantity Comments Source ASSERTION Possible Augie Porter Gender identity Jhonatan shaina Porter Sexual orientation [facility] Alcohol intake 2023-12-31 00:00:00 2023-12-31 00:00:00 Current drinker of alcohol (finding) [facility] Exposure to SARS-CoV-2 (event) 2022-12-13 00:00:00 2022-12-23 07:56:00 Not sure [facility] History of Social function 2022-12-23 00:00:00 2022-12-23 00:00:00 [facility] Tobacco use and exposure 2022-12-23 00:00:00 2022-12-23 00:00:00 Smokeless tobacco non-user [facility] Alcohol Comment 2022-12-23 00:00:00 2022-12-23 00:00:00 ocassional [facility] Sex Ass[birth year] At 1985 00:00:00 1985 00:00:00 [facility] Smoking Status Start Date Stop Date Source [facility] Never [facility] Medications Ordered Medication Name Filled Medication Name Start Date Stop Date Current Medication? Ordering Clinician Indication Dosage Frequency Signature (SIG) Comments Components Source meloxicam (Mobic) 15 MG tablet meloxicam (Mobic) 15 MG tablet 06-09 00:00: 00 07-09 23:59 :00 No 15mg QD Take 1 tablet by mouth 1 time each day. Leonid Porter nystatin 100,000 unit/gram powder 12-30 00:00: 00 Yes [id number] Apply to area(s) 2 (two) times daily. [facility] ergocalcife rol, vitamin D2, (VITAMIN D ORAL) 12-23 08:20: 51 12-30 00:00 :00 No Take by mouth. [facility] nystatin 100,000 unit/gram powder 12-23 00:00: 00 12-30 00:00 :00 No [id number] Apply to area(s) 2 (two) times daily. [facility] diclofenac 75 mg EC tablet 12-18 00:00: 00 12-30 00:00 :00 No [facility] No known medications 12-23 15:33: 20 No [facility] Immunizations Ordered Immunization Name Filled Immunization Name Date Status Comments Source Influenza Virus Vaccine 2022-05-15 00:00:00 Completed [facility] Influenza Virus Vaccine Unknown Completed [facility] Influenza Virus Vaccine Unknown Completed [facility] Vital Signs Vital Name Observation Time Observation Value Comments S ource Systolic blood pressure 2023-12-31 12:58:00 130 mm[Hg] [facility] Diastolic blood pressure 2023-12-31 12:58:00 85 mm[Hg] [facility] Heart rate 2023-12-31 12:58:00 81 /min [facility] Body temperature 2023-12-31 12:58:00 36.44 Monika [facility] Respiratory rate 2023-12-31 12:58:00 18 /min [facility] Body height 2023-12-31 12:58:00 157.5 cm [facility] Body weight 2023-12-31 12:58:00 106.051 kg [facility] BMI 2023-12-31 12:58:00 42.76 kg/m2 [facility] Body weight 2022-12-23 13:17:00 106.232 kg [facility] BMI 2022-12-23 13:17:00 42.84 kg/m2 [facility] Systolic blood pressure 2022-12-23 13:17:00 120 mm[Hg] [facility] Diastolic blood pressure 2022-12-23 13:17:00 72 mm[Hg] [facility] Heart rate 2022-12-23 13:17:00 91 /min [facility] Body temperature 2022-12-23 13:17:00 36.78 Monika [facility] Body height 2022-12-23 13:17:00 157.5 cm [facility] Systolic blood pressure 2021-12-23 19:50:00 138 mm[Hg] [facility] Diastolic blood pressure 2021-12-23 19:50:00 88 mm[Hg] [facility] Heart rate 2021-12-23 19:37:00 87 /min [facility] Body temperature 2021-12-23 19:37:00 36.72 Monika [facility] Respiratory rate 2021-12-23 19:37:00 18 /min [facility] Body height 2021-12-23 19:37:00 157.5 cm [facility] Body weight 2021-12-23 19:37:00 112.492 kg [facility] BMI 2021-12-23 19:37:00 45.36 kg/m2 [facility] Procedures Procedure Date / Time Performed Performing Clinicia n Source ASSIGNMENT OF BENEFITS 2022-12-23 12:57:55 Docto r Unassigned, Germania [facility] Encounters Start Date/Time End Date/Time Encounter Type Admission Type Attending Clinicians Care Facility Care Department Encounter ID Source 2025-01-26 08:45:00 2025-01-26 08:45:00 Outpatient R RAFAT STEIN MARISOL [facility] [id number] [facility] 2024-06-30 11:00:00 2024-06-30 11:40:50 Office Visit [facility]ling [facility] [id number] Leonid Goldberg [facility] 2024-06-30 10:52:27 2024-06-30 11:40:50 Outpatient Elective [id number] 2024-06-16 10:35:33 2024-06-16 11:32:59 Outpatient Elective [facility]BILLY [facility] [id number] [facility] 2024-06-09 12:27:14 2024-06-09 13:15:28 [id number] [facility] 2023-12-31 08:00:00 2023-12-31 08:10:54 Office Visit Enid bolaños [facility] [id number] [id number] [facility] 2023-12-31 08:00:00 2023-12-31 08:10:54 Outpatient R COLEMAN-NIRMALA S RAFAT COLEMAN-NIRMALA S RAFAT [facility] [id number] [facility] 2023-12-24 00:00:00 2023-12-24 00:00:00 Pre Visit Outreach Allison Jernigan Nolvia [facility]rist[facility] [id number] [id number] [id number] [facility] 2023-01-15 00:00:00 2023-01-15 00:00:00 Outpatient R COLEMAN-NIRMALA S RAFAT COLEMAN-NIRMALA S RAFAT [facility] [id number] [facility] 2022-12-23 08:30:00 2022-12-23 08:54:15 Outpatient R COLEMAN-NIRMALA S, RAFAT COLEMAN-NIRMALA S, RAFAT [facility] [id number] [facility] 2022-12-23 08:30:00 2022-12-23 08:54:15 [facility] [id number] [id number] [id number] [facility] 2022-12-23 08:30:00 2022-12-23 08:30:00 Outpatient Rio [facility] [id number] [facility] 2022-12-23 08:30:00 2022-12-23 08:30:00 Outpatient Rio [facility] [id number] [facility] 2022-12-23 00:00:00 2022-12-23 00:00:00 Orders Only Doctor Unassigned, Germania [facility] [id number] [id number] [id number] [id number] [facility] 2021-12-23 16:00:00 2021-12-23 16:00:00 [employer]ator Visit 2, [facility] Carter [facility] [id number] [id number] [id number] [id number] [facility] 2021-12-23 14:30:00 2021-12-23 15:30:26 Office Visit Carter [facility] [id number] [id number] [id number] [id number] [facility] 2021-12-23 14:30:00 2021-12-23 15:30:26 Outpatient Rio [facility] [id number] [facility] 2021-12-23 14:30:00 2021-12-23 15:30:26 Outpatient R MARIEL [facility] [id number] [facility] 2021-12-23 00:00:00 2021-12-23 00:00:00 Orders Only Doctor Unassigned, Germania [facility] [id number] 350.1.13.10 [id number] [id number] [facility] Notes Date/Time Note Provider [facility] 13:25:11* Darling Perry, HAFSA - 06/30/2024 11:00 AM CDT Subjective: Chief Complaints: 1. Plantar fasiitis 2nd visit. HPI: Narrative: Patient has remained in arch support and stable shoe gear. She relates she has no pain and has returned to activity. She states she has been home all week with no pain, but worked 1 week prior and had no pain after full work day. Patient continues home stretching and PT, as well as, meloxicam. ---- Patient states improvement from strapping and anti inflammatory. She wore strapping x 5 days til it got wet. Patient using OTC arch strap and states pain is 99% better. Medical History: Objective: Examination:Physical Exam: Vascular (-)edema, (-) ecchymosis, (-) erythema Dorsal pedis pulse, bilateral - 2/4; Posterior tibial pulse, bilateral- 2/4 Capillary Refill time: within normal limits (-) varicosities, (+) pedal hair growth. Neurological (+) sensation with 5.07 [place] Emili monofilament examination to the most distal lower extremity (-) tinel's sign (-) clonus present. Dermatological (-) signs of soft tissue infection, (-) open wounds, (-) abscess (-) other primary or secondary lesions (+) normal temperature when compared to contralateral limb (+) normal color, tugor, and elasticity. Musculoskeletal (-) pain on palpation to the plantar medial origination of the plantar fascia with hubscher maneuver, pain much reduced with relaxation of the plantar fascia - resolved (-) pain with lateral heel compression (+) equinus, bilateral (+) flexible pes planus foot type, bilateral _5/5 muscle strength to extrinsic pedal muscle groups (-) evidence of compartment syndrome, (-) evidence of deep vein thrombosis. Assessment: Assessment:Plantar fasciitis, LEFT foot Equinus. Plan: Treatment:1. Others Notes: - Extensive visit discussing possible pedal complications associated with plantar fasciitis - X-rays - reviewed - Physical therapy will consider - continue home stretching and icing - Medication-continue oral anti-inflammatory medication - Instructions-reviewed written instructions for icing and strapping provided - Shoes-educated patient on appropriate shoe gear - Custom orthotics-patient deferred due to cost - Return prn Patient advised to report to my clinic or the emergency room immediately withany questions or concerns. Patient Instructions: Discussion: A detailed discussion was provided to the patient with specific reference to etiology, pathology, alternate treatment options, and prognosis. All risks and complications (including side effects) with each treatment/medication alternative were outlined in detail including but not limited to: Pain, swelling, numbness, loss of function, loss of limb, bleeding, hematoma, scarring, failure to relieve condition, surgery, additional/revisional surgery, reflex sympathetic dystrophy, complex regional pain syndrome, reoccurrence of deformity, joint stiffness, flail toe, bone and/or soft tissue infection, blood clots, pulmonary embolism, possible , delayed or non-healing. X-rays, graphs and drawings were all used to assist with patient comprehension when appropriate. All patients questions were answered and stated they fully understood. No guarantee as to results or outcome of treatment was made. I have discussed with the patient or legally responsible person prior to obtaining consent: the risks, potential benefits and drawbacks, significant alternatives, potential for problems related to recuperation, likelihood of success, and possible results of non-treatment, and the patient or the legally responsible person has agreed to proceed. Images: [facility] [id number] 13:25:11 [facility] FallsQzxvvhs6762-00-21 13:25:11 Diagnosis Abnormal foot finding - Prim meredith [facility] FallsJhbrsbv5016-48-60 13:25:11 [facility] FallsLjekndk7606-71-80 13:25:11* Darling Perry, HAFSA - 06/30/2024 11:00 AM CDT Subjective: Chief Complaints: 1. Plantar fasiitis 2nd visit. HPI: Narrative: Patient has remained in arch support and stable shoe gear. She relates she has no pain and has returned to activity. She states she has been home all week with no pain, but worked 1 week prior and had no pain after full work day. Patient continues home stretching and PT, as well as, meloxicam. ---- Patient states improvement from strapping and anti inflammatory. She wore strapping x 5 days til it got wet. Patient using OTC arch strap and states pain is 99% better. Medical History: Objective: Examination:Physical Exam: Vascular (-)edema, (-) ecchymosis, (-) erythema Dorsal pedis pulse, bilateral - 2/4; Posterior tibial pulse, bilateral- 2/4 Capillary Refill time: within normal limits (-) varicosities, (+) pedal hair growth. Neurological (+) sensation with 5.07 [place] Emili monofilament examination to the most distal lower extremity (-) tinel's sign (-) clonus present. Dermatological (-) signs of soft tissue infection, (-) open wounds, (-) abscess (-) other primary or secondary lesions (+) normal temperature when compared to contralateral limb (+) normal color, tugor, and elasticity. Musculoskeletal (-) pain on palpation to the plantar medial origination of the plantar fascia with hubscher maneuver, pain much reduced with relaxation of the plantar fascia - resolved (-) pain with lateral heel compression (+) equinus, bilateral (+) flexible pes planus foot type, bilateral _5/5 muscle strength to extrinsic pedal muscle groups (-) evidence of compartment syndrome, (-) evidence of deep vein thrombosis. Assessment: Assessment:Plantar fasciitis, LEFT foot Equinus. Plan: Treatment:1. Others Notes: - Extensive visit discussing possible pedal complications associated with plantar fasciitis - X-rays - reviewed - Physical therapy will consider - continue home stretching and icing - Medication-continue oral anti-inflammatory medication - Instructions-reviewed written instructions for icing and strapping provided - Shoes-educated patient on appropriate shoe gear - Custom orthotics-patient deferred due to cost - Return prn Patient advised to report to my clinic or the emergency room immediately withany questions or concerns. Patient Instructions: Discussion: A detailed discussion was provided to the patient with specific reference to etiology, pathology, alternate treatment options, and prognosis. All risks and complications (including side effects) with each treatment/medication alternative were outlined in detail including but not limited to: Pain, swelling, numbness, loss of function, loss of limb, bleeding, hematoma, scarring, failure to relieve condition, surgery, additional/revisional surgery, reflex sympathetic dystrophy, complex regional pain syndrome, reoccurrence of deformity, joint stiffness, flail toe, bone and/or soft tissue infection, blood clots, pulmonary embolism, possible , delayed or non-healing. X-rays, graphs and drawings were all used to assist with patient comprehension when appropriate. All patients questions were answered and stated they fully understood. No guarantee as to results or outcome of treatment was made. I have discussed with the patient or legally responsible person prior to obtaining consent: the risks, potential benefits and drawbacks, significant alternatives, potential for problems related to recuperation, likelihood of success, and possible results of non-treatment, and the patient or the legally responsible person has agreed to proceed. Images: [id number] 13:25:11 [facility]andBxxuyws6558-97-52 13:25:11 Diagnosis Abnormal foot finding - Suleman harper [facility] Yusuf
[2025-01-20] MEDS ORDERED: HYDROCODONE/APAP 7.5/325 MG TAB ONE (19:12)
--- NOTE | 2025-01-20 20:12 | EDPHYS ---
Physician Documentation [facility] Name: Chantal Park Age: 39 yrs Sex: Female : 1985 Arrival Date: 01/20/2025 Time: 17:15 Bed 15 Private MD: ED Physician Jalen Prieto HPI: 01/20 18:11 This 39 yrs old Female presents to ER via Wheelchair with complaints of Knee sb4 Pain - left, Foot Pain - left. 18:11 Patient states that she slipped on the wet tile 2 days ago landed on her left knee and sb4 hit the top of her left foot on a sharp tile. Is complaining of pain, bruising, and swelling in the left knee and pain in the top of the left foot. Has been taking ibuprofen without significant improvement in symptoms. States that the swelling has improved. WRAPPING CHECKER: 17:46 LMP 01/15/2025, unknown iw Historical: - Allergies: 17:45 No Known Allergies; iw - Home Meds: 17:45 Vitamin D3 oral [Active]; iw - PMHx: 17:45 Diabetes - NIDDM; iw - PSHx: 17:45 section; Appendectomy; Cholecystectomy; iw - Immunization history:: Adult Immunizations up to date. - Infectious Disease History:: Denies. - Social history:: Smoking status: . ROS: 18:11 Constitutional: Negative for fever, chills, and weight loss, sb4 18:11 MS/extremity: Positive for injury or acute deformity, decreased range of motion, ecchymosis, pain, swelling, tenderness, of the left knee, and dorsum of left foot, 18:11 All other systems are negative, sb4 Exam: 18:11 Constitutional: This is a well developed, well nourished patient who is awake, alert, sb4 and in no acute distress. Head/Face: Normocephalic, atraumatic. Eyes: Extra-ocular motions intact. Periorbital areas with no swelling, redness, or edema. ENT: Mucous membranes moist. Respiratory: No increased work of breathing, no retractions or nasal flaring. 18:11 Musculoskeletal/extremity: Joints: the left knee displays limited range of motion, pain at rest, painful range of motion, swelling, tenderness, ecchymosis, pain with palpation dorsum of left foot. no swelling or ecchymosis. pedal pulses intact. ankle with full ROM. Vital Signs: 17:43 BP 153 / 105; Pulse 87; Resp 16; Pulse Ox 97% on R/A; Pain 7/10; iw 20:39 BP 148 / 95; Pulse 84; Resp 16; Pulse Ox 98% ; cp4 17:43 Pain Scale: Adult iw MDM: 17:40 Medical Screening Exam initiated sb4 20:10 Differential diagnosis: fracture, sprain, strain. Data reviewed: vital signs, nurses sb4 notes, radiologic studies, and as a result, I will discharge patient. Counseling: I had a detailed discussion with the patient and/or guardian regarding the historical points, exam findings, and any diagnostic results supporting the discharge/admit diagnosis, radiology results, the need for outpatient follow up, a orthopedic surgeon, to return to the emergency department if symptoms worsen or persist or if there are any questions or concerns that arise at home. 01/20 17:52 Order name: Knee Left 3 View XRAY sb4 01/20 17:52 Order name: Foot Left 3 View XRAY sb4 01/20 20:10 Order name: Knee Immobilizer; Complete Time: 20:37 sb4 Administered Medications: 19:14 Drug: Hydrocodone-Acetaminophen PO (7.5 mg-325 mg) 1 tabs PO once Route: PO; cp4 20:38 Follow up: Response: No adverse reaction cp4 Disposition: 21:12 I was immediately available on-site in the Emergency Department for consultation in the ms3 care of the patient. Disposition Summary: 01/20/25 20:11 Discharge Ordered Notes: Location: Home sb4 Problem: new sb4 Symptoms: have improved sb4 Condition: Stable sb4 Diagnosis - Contusion of left knee sb4 - Contusion of left foot sb4 Followup: sb4 - With: Ady Caraballo MD - When: As needed - Reason: Recheck today's complaints, Continuance of care, Re-evaluation by your physician Discharge Instructions: - Discharge Summary Sheet sb4 - Foot Contusion, [id number]-wg-[id number] sb4 - Knee Sprain, Adult, Jghi-ea-Ssuf sb4 Forms: - Patient Portal Instructions sb4 - Leadership Thank You Letter sb4 Prescriptions: - meloxicam 7.5 mg Oral tablet - take 1 tablet ORAL route daily; 14 tablet; Refills: 0, Product Selection sb4 Permitted - methocarbamol 750 mg Oral tablet - take 1 tablet ORAL route every 4 hours PRN pain; 20 tablet; Refills: 0, Product sb4 Selection Permitted Signatures: Dispatcher [employer] Tiffanie Crawford, RN RN iw Jalen Prieto, DO ms3 Annmarie Anand, [employer] sb4 Esme Pena cp4 Corrections: (The following items were deleted from the chart) 17:53 17:53 Foot Left 3 View+RAD.RAD.BRZ ordered. [facility]ORNER
--- NOTE | 2025-01-20 20:12 | ER ---
Nurse's Notes [facility] Name: Chantal Park Age: 39 yrs Sex: Female : 1985 Arrival Date: 01/20/2025 Time: 17:15 Bed 15 Private MD: Diagnosis: Contusion of left knee;Contusion of left foot Presentation: 01/20 17:43 Chief complaint: Patient states: slipped and fell on left knee two days ago , still iw having pain , also has pain in left foot , she hit her foot on the edge of the tile. Coronavirus screen: At this time, the client does not indicate any symptoms associated with coronavirus-19. Ebola Screen: No symptoms or risks identified at this time. Initial Sepsis Screen: Does the patient meet any 2 criteria? No. Patient's initial sepsis screen is negative. Does the patient have a suspected source of infection? No. Patient's initial sepsis screen is negative. Risk Assessment: Do you want to hurt yourself or someone else? Patient reports no desire to harm self or others. Onset of symptoms was January 19, 2025. 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 - Infectious Disease History:: Denies. - Social history:: Smoking status: . Screenin:41 [facility] ED Fall Risk Assessment (Adult) History of falling in the last 3 months, cp4 including since admission No falls in past 3 months (0 pts) Confusion or Disorientation No (0 pts) Intoxicated or Sedated No (0 pts) Impaired Gait No (0 pts) Mobility Assist Device Used No (0 pt) Altered Elimination No (0 pt) Score/Fall Risk Level 0 - 2 = Low Risk Oriented to surroundings, Maintained a safe environment, Assessed \T\ reinforced patient's understanding of fall precautions, Hourly rounding (assess needs \T\ fall precautionary measures) done. Abuse screen: Denies threats or abuse. Denies injuries from another. Nutritional screening: No deficits noted. Tuberculosis screening: No symptoms or risk factors identified. Assessment: 19:40 General: Appears in no apparent distress. comfortable, Behavior is calm, cooperative, cp4 appropriate for age. Pain: Complains of pain in left knee Pain does not radiate. Pain. 19:41 Pain: Pain currently is 7 out of 10 on a pain scale. Neuro: Level of Consciousness is cp4 awake, alert, obeys commands, Oriented to person, place, time, situation. Cardiovascular: Patient's skin is warm and dry. Respiratory: Airway is patent Respiratory effort is even, unlabored. GI: No signs and/or symptoms were reported involving the gastrointestinal system. : No signs and/or symptoms were reported regarding the genitourinary system. EENT: No signs and/or symptoms were reported regarding the EENT system. Derm: No signs and/or symptoms reported regarding the dermatologic system. Musculoskeletal: Reports pain in left knee. Vital Signs: 17:43 BP 153 / 105; Pulse 87; Resp 16; Pulse Ox 97% on R/A; Pain 7/10; iw 20:39 BP 148 / 95; Pulse 84; Resp 16; Pulse Ox 98% ; cp4 17:43 Pain Scale: Adult iw ED Course: 17:16 Patient arrived in ED. im 17:32 Annmarie Anand PA-C is PHCP. sb4 17:32 Jalen Prieto DO is Attending Physician. sb4 17:45 Triage completed. iw 18:14 Knee Left 3 View XRAY In Process Unspecified. EDMS 18:24 Foot Left 3 View XRAY In Process Unspecified. EDMS 19:08 Esme Pena is Primary Nurse. cp4 19:41 Bed in low position. Call light in reach. Side rails up X 1. cp4 19:41 No provider procedures requiring assistance completed. Patient did not have IV access cp4 during this emergency room visit. 20:11 Ady Caraballo MD is Referral Physician. sb4 20:39 Provided Education on: knee sprain. cp4 20:40 Arm band placed on right wrist. Patient placed in waiting room. cp4 Administered Medications: 19:14 Drug: Hydrocodone-Acetaminophen PO (7.5 mg-325 mg) 1 tabs PO once Route: PO; cp4 20:38 Follow up: Response: No adverse reaction cp4 Medication: 19:41 VIS not applicable for this client. cp4 Outcome: 20:11 Discharge ordered by MD. sb4 20:39 Discharged to home ambulatory, cp4 20:39 Condition: stable 20:39 Discharge instructions given to patient, Instructed on discharge instructions, follow up and referral plans. medication usage, Demonstrated understanding of instructions, follow-up care, medications, Prescriptions given X 2, 20:40 Patient left the ED. cp4 Signatures: Dispatcher [employer] EDTiffanie Kelly RN Annmarie Baxter, PA-C PA-C sb4 Karla Nguyen Christina cp4
[2025-01-20 21:12] VITALS: BP 148/95; O2SAT 98
--- NOTE | 2025-01-20 21:49 | RAD REPORT ---
EXAMINATION: XR LEFT FOOT CLINICAL INDICATION: PAIN TECHNIQUE: Multiple projections of the left foot were obtained. COMPARISON: No prior exam. FINDINGS: No acute fracture or dislocation is seen. Large calcaneal spurs are present. Electronically signed by: Hans Agarwal MD 01/20/2025 06:29 PM CDT Due to temporary technical issues with the PACS/[employer] reporting system, reports are being makeda d by the in-house radiologist without review as a courtesy to ensure prompt reporting the interpreting radiologist is fully responsible for the content of the report Transcribed Date/Time: 01/20/2025 9:49 PM
--- NOTE | 2025-01-20 21:50 | RAD REPORT ---
EXAMINATION: XR LEFT KNEE CLINICAL INDICATION: PAIN TECHNIQUE: Multiple projections of the left knee were obtained. COMPARISON: No prior exam. FINDINGS: No bone or joint abnormality seen. Electronically signed by: Hans Agarwal MD 01/20/2025 06:19 PM CDT Due to temporary technical issues with the PACS/[employer] reporting system, reports are being makeda d by the in-house radiologist without review as a courtesy to ensure prompt reporting the interpreting radiologist is fully responsible for the content of the report Transcribed Date/Time: 01/20/2025 9:49 PM
== END 2025-01-20 20:40 | disposition home or self-care (01) ==
LOC: ER 17:15
DX: S80.02XA Contusion of left knee, initial encounter (principal); S90.32XA Contusion of left foot, initial encounter
CPT/HCPCS: 99283

== ENCOUNTER 2025-05-11 13:51 | Emergency (ER) | payer BC ==
--- OUTSIDE RECORDS SUMMARY | 2025-05-11 13:55 | XMS REPORT | Continuity of Care Document ---
Author Name Unknown Address [address] [place] [address] [facility] [place] Address [address] [place] [address] Care Team Providers Care Landscape Drafter Name Role Phone JANEL LOUIS JR Primary Care Physician RAFAT Garibay Attending Clinician RAFAT Garibay Attending Clinician Darling Dykes DPM Attending Clinician [phone] DARLING PERRY Attending Clinician Ana Maria Jernigan December A Attending Clinician UnavailMARIEL Garcia Attending Clinician Unavailable Doctor Unassigned, Nile Attending Clinician U navailable 2, [facility] Lab Attending Clinician Unavailable Mariel Hopkins PA-C Attending Clinician Payers Payer Name Policy Type Policy Number Effective Date Expirati on Date Source BCBS [facility] - OUT OF STATE [id number] 2021 00:00:00 BCBS COMM [id number] 2023 00:00:00 Problems Condition Name Condition Details Condition Category Status Onset Date Resolution Date Last Treatment Date Treating Clinician Comments Source Morbid obesity with body mass index of 40.0-49.9 Morbid obesity with body mass index of 40.0-49.9 Disease Active 12-23 00:00: 00 [facility] Dysmenorrh ea Dysmenorrh ea Disease Active 12-23 00:00: 00 [facility] No known active problems No known active problems Disease [facility] Allergies, Adverse Reactions, Alerts Allergy Name Allergy Type Status Severity Reaction(s) Onset Date Inactive Date Treating Clinician Comments Source NO KNOWN ALLERGIE S Drug Class Active [facility] Social History Social Habit Start Date Stop Date Quantity Comments Source ASSERTION Possible Augie Porter Gender identity Jhonatan Porter Sexual orientation M emoshaina Porter Alcohol intake 2023-12-31 00:00:00 2023-12-31 00:00:00 Current drinker of alcohol (finding) [facility] Exposure to SARS-CoV-2 (event) 2022-12-13 00:00:00 2022-12-23 07:56:00 Not sure [facility] History of Social function 2022-12-23 00:00:00 2022-12-23 00:00:00 [facility] Tobacco use and exposure 2022-12-23 00:00:00 2022-12-23 00:00:00 Smokeless tobacco non-user [facility] Alcohol Comment 2022-12-23 00:00:00 2022-12-23 00:00:00 ocassional [facility] Sex Assigned At 1985 00:00:00 1985 00:00:00 [facility] Smoking Status Start Date Stop Date Source Tobacco [facility] Never smoked tobacco [facility] Medications Ordered Medication Name Filled Medication Name Start Date Stop Date Current Medication? Ordering Clinician Indication Dosage Frequency Signature (SIG) Comments Components Source meloxicam (Mobic) 15 MG tablet meloxicam (Mobic) 15 MG tablet 06-09 00:00: 00 07-09 23:59 :00 No 15mg QD Take 1 tablet by mouth 1 time each day. Leonid Porter nystatin 100,000 unit/gram powder 12-30 00:00: 00 Yes [id number] Apply to area(s) 2 (two) times daily. [facility] ergocalcife rol, vitamin D2, (VITAMIN D ORAL) 12-23 08:20: 51 12-30 00:00 :00 No Take by mouth. [facility] nystatin 100,000 unit/gram powder 12-23 00:00: 00 12-30 00:00 :00 No [id number] Apply to area(s) 2 (two) times daily. [facility] diclofenac 75 mg EC tablet 12-18 00:00: 00 12-30 00:00 :00 No [facility] No known medications 12-23 15:33: 20 No [facility] Immunizations Ordered Immunization Name Filled Immunization Name Date Status Comments Source Influenza Virus Vaccine 2022-05-15 00:00:00 Completed [facility] Influenza Virus Vaccine Unknown Completed [facility] Influenza Virus Vaccine Unknown Completed [facility] Vital Signs Vital Name Observation Time Observation Value Comments S ource Systolic blood pressure 2023-12-31 12:58:00 130 mm[Hg] [facility] Diastolic blood pressure 2023-12-31 12:58:00 85 mm[Hg] [facility] Heart rate 2023-12-31 12:58:00 81 /min [facility] Body temperature 2023-12-31 12:58:00 36.44 Monika [facility] Respiratory rate 2023-12-31 12:58:00 18 /min [facility] Body height 2023-12-31 12:58:00 157.5 cm [facility] Body weight 2023-12-31 12:58:00 106.051 kg [facility] BMI 2023-12-31 12:58:00 42.76 kg/m2 [facility] Systolic blood pressure 2022-12-23 13:17:00 120 mm[Hg] [facility] Diastolic blood pressure 2022-12-23 13:17:00 72 mm[Hg] [facility] Heart rate 2022-12-23 13:17:00 91 /min [facility] Body temperature 2022-12-23 13:17:00 36.78 Monika [facility] Body height 2022-12-23 13:17:00 157.5 cm [facility] Body weight 2022-12-23 13:17:00 106.232 kg [facility] BMI 2022-12-23 13:17:00 42.84 kg/m2 [facility] Systolic blood pressure 2021-12-23 19:50:00 138 mm[Hg] [facility] Diastolic blood pressure 2021-12-23 19:50:00 88 mm[Hg] [facility] Heart rate 2021-12-23 19:37:00 87 /min Un[facility] Body temperature 2021-12-23 19:37:00 36.72 Monika [facility] Respiratory rate 2021-12-23 19:37:00 18 /min [facility] Body height 2021-12-23 19:37:00 157.5 cm [facility] Body weight 2021-12-23 19:37:00 112.492 kg [facility] BMI 2021-12-23 19:37:00 45.36 kg/m2 [facility] Procedures Procedure Date / Time Performed Performing Clinicia n Source ASSIGNMENT OF BENEFITS 2022-12-23 12:57:55 Docto r Unassigned, Nile [facility] Encounters Start Date/Time End Date/Time Encounter Type Admission Type Attending Clinicians Care Facility Care Department Encounter ID Source 2025-04-24 15:45:00 2025-04-24 15:45:00 Outpatient RAFAT MUKHERJEE MARISOL [facility] [id number] [facility] 2025-03-03 14:15:00 2025-03-03 14:15:00 Outpatient RAFAT MUKHERJEE MARISOL [facility] [id number] [facility] 2025-01-26 08:45:00 2025-01-26 08:45:00 Outpatient R COLEMAN-NIRMALA S, RAFAT COLEMAN-NIRMALA S, RAFAT [facility] [id number] [facility] 2024-06-30 11:00:00 2024-06-30 11:40:50 [facility] [id number] [id number] [id number] [facility] 2024-06-30 10:52:27 2024-06-30 11:40:50 Outpatient Elective DARLING PERRY [facility] [id number] [facility] 2024-06-16 10:35:33 2024-06-16 11:32:59 Outpatient Elective DARLING PERRY [facility]OUT [facility] [id number] [facility] 2024-06-09 12:27:14 2024-06-09 13:15:28 Outpatient Elective DARLING PERRY [facility]OUT [facility] [id number] [facility]OUT 2023-12-31 08:00:00 2023-12-31 08:10:54 Outpatient R COLEMAN-NIRMALA S, RAFAT JARED-NIRMALA SVALDORAFAT [facility] [id number] [facility] 2023-12-31 08:00:00 2023-12-31 08:10:54 Office Visit Rafat Busby [facility] [id number] [id number] [id number] [id number] [facility] 2023-12-24 00:00:00 2023-12-24 00:00:00 Pre Visit Outreach Allison Jernigan [id number] [id number] [id number] [id number] [facility] 2023-01-15 00:00:00 2023-01-15 00:00:00 Outpatient R COLEMAN-NIRMALA S, RAFAT COLEAMN-NIRMALA S, RAFAT [facility] [id number] [facility] 2022-12-23 08:30:00 2022-12-23 08:54:15 Outpatient R COLEMAN-NIRMALA S, RAFAT COLEMAN-NIRMALA S, RAFAT [facility] [id number] [facility] 2022-12-23 08:30:00 2022-12-23 08:54:15 [facility] 1..840.114 350.1.13.10 [id number] [id number] [facility] 2022-12-23 08:30:00 2022-12-23 08:30:00 Outpatient R MARIEL HOPKINS [facility] [id number] [facility] 2022-12-23 08:30:00 2022-12-23 08:30:00 [facility] [id number] [facility] 2022-12-23 00:00:00 2022-12-23 00:00:00 Orders Only Doctor Unassigned, Nile [facility] 1..840.114 350.1.13.10 [id number] [id number] [facility] 2021-12-23 16:00:00 2021-12-23 16:00:00 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, 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 [facility] 1..840.114 350.1.13.10 [id number] [id number] [facility] 2021-12-23 14:30:00 2021-12-23 15:30:26 Office Visit Mariel Hopkins [facility] 1.840.114 350.1.13.10 4.2.7.2.686 [id number] [facility] 2021-12-23 14:30:00 2021-12-23 15:30:26 Outpatient R [facility]LLIE [facility] [id number] [facility] 2021-12-23 14:30:00 2021-12-23 15:30:26 Outpatient R KELLIE [facility] [id number] [facility] 2021-12-23 00:00:00 2021-12-23 00:00:00 Orders Only Doctor Unassigned, Nile [facility] 1.840.114 350.1.13.10 4.2.7.2.686 [id number] [facility] Notes Date/Time Note Provider [facility] 13:25:11 [place] [id number] 13:25:11* Darling Perry DPM - 06/30/2024 11:00 AM CDT Subjective: Chief [...] hair growth. Neurological (+) sensation with 5.07 [place] monofilament examination to the most distal [...] responsible person has agreed to proceed. Images: [facility] 13:25:11 [place] [id number] 13:25:11 Diagnosis Abnormal foot finding - Prim meredith [facility]14[facility]69 13:25:11 [place] [id number] 13:25:11* Darling Perry DPM - 06/30/2024 11:00 AM CDT Subjective: Chief [...] hair growth. Neurological (+) sensation with 5.07 [place] [facility] monofilament examination to the most distal [...] responsible person has agreed to proceed. Images: OS Goldberg2024-10-17 13:25:11 Augie Goldberg
--- NOTE | 2025-05-11 16:09 | RAD REPORT ---
EXAMINATION: XR Elbow Right 3 View CLINICAL INDICATION: Female, 39 years old. Pain;Swelling RIGHT TECHNIQUE: 3 view radiographs of the right elbow were obtained. COMPARISON: No prior exam. FINDINGS: No evidence of fracture or dislocation. Normal alignment. No joint effusion. No evidence of arthropathy. No suspicious focal bone lesion. Soft tissues are unremarkable. IMPRESSION: No acute or significant abnormalities.
--- NOTE | 2025-05-11 16:42 | ER ---
Nurse's Notes [facility] Name: Chantal Park Age: 39 yrs Sex: Female : 1985 Arrival Date: 05/11/2025 Time: 13:51 Bed 24 Private MD: Diagnosis: Pain in right elbow Presentation: 05/11 14:07 Chief complaint: Patient states: reports right elbow pain with arm extended that me1 started this morning. Pain 2/10. Denies injury. Coronavirus screen: Vaccine status: Patient reports receiving the 2nd dose of the covid vaccine. Ebola Screen: No symptoms or risks identified at this time. Initial Sepsis Screen: Does the patient meet any 2 criteria? HR > 90 bpm. Does the patient have a suspected source of infection? No. Patient's initial sepsis screen is negative. Risk Assessment: Do you want to hurt yourself or someone else? Patient reports no desire to harm self or others. Onset of symptoms was May 11, 2025 at 08:30. 14:07 Method Of Arrival: Ambulatory [facility] 14:07 Acuity: JOVAN 4 me1 Triage Assessment: 14:09 General: Appears in no apparent distress. Behavior is calm, cooperative, appropriate me1 for age. EENT: No signs and/or symptoms were reported regarding the EENT system. Neuro: Level of Consciousness is awake, alert, obeys commands, Oriented to person, place, time, situation, Appropriate for age. Cardiovascular: Patient's skin is warm and dry. Respiratory: Airway is patent Respiratory effort is even, unlabored, Respiratory pattern is regular, symmetrical. GI: No signs and/or symptoms were reported involving the gastrointestinal system. : No signs and/or symptoms were reported regarding the genitourinary system. Derm: Skin is intact, is healthy with good turgor, Skin is normal. Musculoskeletal: Reports pain in right elbow. 14:09 Pain: Complains of pain in right arm and right elbow Pain currently is 2 out of 10 on a me1 pain scale. Pain began gradually, Is continuous. Historical: - Allergies: 14:09 No Known Allergies; me1 - PMHx: 14:09 Diabetes - NIDDM; me1 - PSHx: 14:09 Appendectomy; section; Cholecystectomy; me1 - Immunization history:: Adult Immunizations up to date. - Infectious Disease History:: Denies. - Social history:: Smoking status: Patient denies any tobacco usage or history of. Screenin:54 [facility] ED Fall Risk Assessment (Adult) History of falling in the last 3 months, jb4 including since admission No falls in past 3 months (0 pts) Confusion or Disorientation No (0 pts) Intoxicated or Sedated No (0 pts) Impaired Gait No (0 pts) Mobility Assist Device Used No (0 pt) Altered Elimination No (0 pt) Score/Fall Risk Level 0 - 2 = Low Risk Oriented to surroundings, Maintained a safe environment. Abuse screen: Denies threats or abuse. Nutritional screening: No deficits noted. Tuberculosis screening: No symptoms or risk factors identified. Assessment: 14:51 General: Appears in no apparent distress. comfortable, Behavior is calm, cooperative, jb4 appropriate for age. Pain: Complains of pain in right elbow. Neuro: Level of Consciousness is awake, alert, obeys commands, Oriented to person, place, time, situation. Cardiovascular: Patient's skin is warm and dry. Respiratory: Airway is patent Respiratory effort is even, unlabored, Respiratory pattern is regular, symmetrical. Derm: Skin is intact, Skin is pink, warm \T\ dry. Musculoskeletal: Circulation, motion, and sensation intact. Range of motion: intact in all extremities. 16:20 Reassessment: Pt sleeping, no s/s of pain or distress noted. Respirations are even an jb4 unlabored. 16:54 Reassessment: Patient appears in no apparent distress at this time. Patient and/or jb4 family updated on plan of care and expected duration. Pain level reassessed. Patient is alert, oriented x 3, equal unlabored respirations, skin warm/dry/pink. Vital Signs: 14:07 BP 149 / 97; Pulse 97; Resp 17; Temp 97.9; Pulse Ox 100% ; Weight 106.59 kg; Height 5 me1 ft. 2 in. ; Pain 2/10; 14:07 Body Mass Index 42.98 (106.59 kg, 157.48 cm) me1 14:07 Pain Scale: Adult me1 ED Course: 13:53 Patient arrived in ED. cj3 13:56 [facility]C [facility] 13:56 Harrison Henning MD is Attending Physician. dr5 14:09 Triage completed. me1 14:09 Arm band placed on Patient placed in an exam room. me1 14:50 Daniel Dennison, RN is Primary Nurse. jb4 15:02 Elbow Right 3 View XRAY In Process Unspecified. EDMS 16:54 Patient has correct armband on for positive identification. Bed in low position. Call jb4 light in reach. Side rails up X 1. Provided Education on: discharge instructions.. 16:54 No provider procedures requiring assistance completed. Patient did not have IV access jb4 during this emergency room visit. Administered Medications: 16:23 Not Given (Patient Refused): hydrocodone-acetaminophen5 mg-325 mg 2 tabs PO once jb4 16:23 Not Given (Patient Refused): [id number] mg PO once jb4 Medication: 16:54 VIS not applicable for this client. jb4 Outcome: 16:41 Discharge ordered by . dr5 16:54 Discharged to home ambulatory, jb4 16:54 Condition: stable 16:54 Discharge instructions given to patient, Instructed on discharge instructions, follow up and referral plans. medication usage, Demonstrated understanding of instructions, follow-up care, medications, Prescriptions given X 1, 16:55 Patient left the ED. jb4 Signatures: Dispatcher [employer] EDMD Daniel Dennison, RN RN jb4 Dione Toussaint RN RN me1 Travon Tobias, LPN OR MEDICAL ASSISTANT-C LPN OR MEDICAL ASSISTANT-Cdr5 Vianca Mojica cj3 Corrections: (The following items were deleted from the chart) 14:12 14:09 Pain: Complains of pain in left elbow Pain does not radiate. Pain currently is 2 me1 out of 10 on a pain scale. Pain began gradually, Is continuous, me1
--- NOTE | 2025-05-11 16:42 | EDPHYS ---
Physician Documentation [facility] Name: Chantal Park Age: 39 yrs Sex: Female : 1985 Arrival Date: 05/11/2025 Time: 13:51 Bed 24 Private MD: ED Physician Harrison Henning HPI: 05/11 15:22 This 39 yrs old Female presents to ER via Ambulatory with complaints of Elbow dr5 Injury - RT. 15:22 The patient or guardian complains of pain, that is acute. Onset: The symptoms/episode dr5 began/occurred this morning. Patient is a 39-year-old female with history of diabetes coming in with right elbow pain that occurred this morning. Patient reports that she felt pain on her medial right elbow that started this morning. Patient denies trauma or falls. Patient also denies having this injury prior. Patient denies numbness or tingling to right arm. Patient states that the pain is sharp and stabbing in nature.. Historical: - Allergies: 14:09 No Known Allergies; me1 - PMHx: 14:09 Diabetes - NIDDM; me1 - PSHx: 14:09 Appendectomy; section; Cholecystectomy; me1 - Immunization history:: Adult Immunizations up to date. - Infectious Disease History:: Denies. - Social history:: Smoking status: Patient denies any tobacco usage or history of. ROS: 15:22 Constitutional: as per hpi dr5 Exam: 15:22 Constitutional: This is a well developed, well nourished patient who is awake, alert, dr5 and in no acute distress. Head/Face: Normocephalic, atraumatic. Eyes: Pupils equal round and reactive to light, extra-ocular motions intact. Lids and lashes normal. Conjunctiva and sclera are non-icteric and not injected. Cornea within normal limits. Periorbital areas with no swelling, redness, or edema. Neck: Trachea midline, no thyromegaly or masses palpated, and no cervical lymphadenopathy. Supple, full range of motion without nuchal rigidity, or vertebral point tenderness. No Meningismus. Chest/axilla: Normal chest wall appearance and motion. Nontender with no deformity. No lesions are appreciated. Cardiovascular: Regular rate and rhythm with a normal S1 and S2. Normal PMI, no JVD. No pulse deficits. Respiratory: Lungs have equal breath sounds bilaterally, clear to auscultation. No rales, rhonchi or wheezes noted. No increased work of breathing, no retractions or nasal flaring. Back: No spinal tenderness. No costovertebral tenderness. Full range of motion. Skin: Warm, dry with normal turgor. Normal color with no rashes, no lesions, and no evidence of cellulitis. MS/ Extremity: Pulses equal, no cyanosis. Neurovascular intact. Full, normal range of motion. Neuro: Awake and alert, GCS 15, oriented to person, place, time, and situation. Cranial nerves II-XII grossly intact. Motor strength 5/5 in all extremities. Sensory grossly intact. Cerebellar exam normal. Normal gait. Vital Signs: 14:07 BP 149 / 97; Pulse 97; Resp 17; Temp 97.9; Pulse Ox 100% ; Weight 106.59 kg; Height 5 me1 ft. 2 in. ; Pain 2/10; 14:07 Body Mass Index 42.98 (106.59 kg, 157.48 cm) me1 14:07 Pain Scale: Adult me1 MDM: 13:56 Medical Screening Exam initiated dr5 17:18 Differential diagnosis: open fracture, closed fracture, contusion, abrasion. Data dr5 reviewed: vital signs, nurses notes, radiologic studies, plain films. Consideration of Admission/Observation Escalation of care including admission/observation considered. Escalation considered patient found to have fracture that required reduction.. I considered the following discharge prescriptions or medication management in the emergency department I discussed and recommended Over The Counter medications, Medications were administered in the Emergency Department. See MAR. Historians other than the Patient: Parent: Mother and father at bedside. Care significantly affected by the following Social Determinants of Health: Poor access to healthcare and/or lack of insurance, Poor access to transportation, Problems related to employment. Counseling: I had a detailed discussion with the patient and/or guardian regarding the historical points, exam findings, and any diagnostic results supporting the discharge/admit diagnosis, the presence of at least one elevated blood pressure reading (>120/80) during this emergency department visit, radiology results, the need for outpatient follow up, for definitive care, a family practitioner, to return to the emergency department if symptoms worsen or persist or if there are any questions or concerns that arise at home. Counseling: I had a detailed discussion with the patient and/or guardian regarding. Special discussion: I discussed with the patient/guardian in detail that at this point there is no indication for admission to the hospital. It is understood, however, that if the symptoms persist or worsen the patient needs to return immediately for re-evaluation. Based on the history and exam findings, there is no indication for further emergent testing or inpatient evaluation. I discussed with the patient/guardian the need to see the orthopedic surgeon for further evaluation of the symptoms. ED course: Patient reports he is doing better. Patient did not want pain medication. Patient did not have fracture. All question answered. Strict ER precautions given.. 05/11 14:20 Order name: Elbow Right 3 View XRAY; Complete Time: 16:10 dr5 Administered Medications: 16:23 Not Given (Patient Refused): hydrocodone-acetaminophen5 mg-325 mg 2 tabs PO once jb4 16:23 Not Given (Patient Refused): [id number] mg PO once jb4 Disposition: 05/12 13:39 Co-signature as Attending Physician, Harrison Henning MD I agree with the assessment and louise plan of care. Disposition Summary: 05/11/25 16:41 Discharge Ordered Notes: Location: Home dr5 Condition: Stable dr5 Diagnosis - Pain in right elbow dr5 Followup: dr5 - With: Emergency Department - When: As needed - Reason: Worsening of condition Followup: dr5 - With: Private Physician - When: 1 - 2 days - Reason: Recheck today's complaints, Continuance of care, Re-evaluation by your physician Discharge Instructions: - Discharge Summary Sheet dr5 - Elbow Sprain dr5 Forms: - Work release form dr5 - Medication Reconciliation Form dr5 - Patient Portal Instructions dr5 - Leadership Thank You Letter dr5 Prescriptions: - Ibuprofen 800 mg Oral Tablet - take 1 tablet ORAL route every 12 hours As needed take with food; 20 tablet; dr5 Refills: 0, Product Selection Permitted Signatures: Dispatcher [employer] Harrison Neville MD MD cha Eddleman, Michelle, RN RN me1 Travon Tobias, NOEL-C MANAGER EMERGENCY DEPARTMENT-[facility]5 Daniel Dennison RN jb4
[2025-05-11 23:08] VITALS: BP 149/97; TEMP 97.9; O2SAT 100
== END 2025-05-11 16:55 | disposition home or self-care (01) ==
LOC: ER 13:51
DX: M25.521 Pain in right elbow (principal)
CPT/HCPCS: 99283